=== PATIENT | male | born 1940 | race Caucasian/White ===

== ENCOUNTER 2018-03-11 13:11 | Inpatient (IN) ==
[2018-03-11] MEDS ORDERED: *HR* Dextrose 50 % in Water (Syg) 50 ML SYRINGE ONE (13:15)
--- NOTE | 2018-03-11 13:29 | Emergency Department Note ---
Disposition Clinical Impression: Hypoglycemia Congestive heart failure Qualifiers: Heart failure type: unspecified Heart failure chronicity: acute Qualified Code( s): I50.9 - Heart failure, unspecified Altered mental status Qualifiers: Altered mental status type: unspecified Qualified Code(s): R41.82 - Altered mental status, unspecified Disposition: Admitted As Inpatient Condition: Fair Forms: ED Satisfaction Letter, Work/School Release Time of Disposition: 14:34 Altered Mental Status HPI - General Chief Complaint: ED General Medical Stated Complaint: low BS Time Seen by Provider: 03/11/18 13:18 Source: patient, family, EMS Mode of arrival: EMS Limitations: no limitations Nursing Notes Reviewed: Yes Vital Signs Reviewed: Yes - History of Present Illness HPI Narrative: Patient presents to the ED with the chief complaint of altered mental status. Patient arrived via EMS and was seen and evaluated immediately upon arrival. Patient has a history of fragile diabetes. He normally lives at home with his , but she was recently committed to a mental institution. Patient's sister called him today and was unable to get a hold of him when over to his house and found him "gurgling" with phlegm coming out of his mouth. Sound very congested. She checked his blood sugar and it was in the 30s. She tried to give him some glucose orally, but he was not responding appropriately, so she called EMS. Blood sugar for EMS was in the 50s. States that he was running around, but they were unable to get IV access. Because they are a basic crew. He was given an amp of D50 and his mental status almost immediately improved. He was able to tell me is been having some chest pain and heaviness today. He said a thick cough and congestion. Unsure if these had any fevers. States he took his insulin this morning and forgot to eat. - Related Data Home Medications Medication Instructions Recorded Confirmed Aspirin [Adult Aspirin] 81 mg PO DAILY 03/11/18 Furosemide [Lasix] 40 mg PO DAILY 03/11/18 Insulin Glargine,Hum.rec.anlog 90 unit SQ DAILY 03/11/18 [Humzaubernie Solostar] Insulin LISPRO [Humalog Kwikpen 12 unit SQ TID 03/11/18 U-100] Nitroglycerin [Nitrostat] 0.4 mg SL Q5M PRN 03/11/18 Pravastatin Sodium [Pravachol] 40 mg PO QPM 03/11/18 Ramipril [Altace] 10 mg PO DAILY 03/11/18 Allergies Allergy/AdvReac Type Severity Reaction Status Date / Time Penicillins [PCN] Allergy Rash Verified 07/08/17 09:04 Hrrfxtr-Yeq-Xpv Reductase AdvReac See Verified 07/08/17 09:04 Inhibitor Comments [Statins] Review of Systems: As reviewed in the HPI. All other systems reviewed are negative or normal. Past Medical History - Past Medical History Attestation: Yes The following information was validated with the patient. Source: patient, old records reviewed Medical history: Reports: diabetes, hypertension Psychiatric history: Reports: no psych history - Social History Smoking Status: Never smoker Alcohol use: Reports: none Drug use: Reports: none Physical Exam CONSTITUTIONAL: [ill appearing, alert . After glucagon and in no acute distress ] EYES: [EOMI, clear conjunctiva, PERRLA] HENT: [Normocephalic, atraumatic, moist mucus membranes, normal oropharynx] NECK: [normal inspection, full ROM, trachea midline, no obvious swelling] PULMONARY: [Rales and coarse congestion bilaterally, normal chest rise and fall , no respiratory distress or stridor CARDIOVASCULAR: [regular rate, regular rhythm, normal heart sounds, no murmurs, distal extremities are warm and well perfused] GASTROINSTESTINAL: [soft, non-tender, non-rigid, non-distended, no guarding, no rebound, normal bowel sounds, fairly significant ventral hernia when attempting to sit up] GENITOURINARY/RECTAL: [deferred] NEUROLOGIC: [Alert, oriented x3, normal speech, moves all extremities, GCS 15. After glucagon, cranial nerves II through XII intact, and NIH of 0] EXTREMITIES: [Normal inspection, full ROM, no tenderness, 1+ pedal edema, normal capillary refill] MUSCULOSKELETAL: [no gross deformities, atraumatic] SKIN: [No cyanosis, no diaphoresis, normal color, warm, no rash] PSYCHIATRIC: [normal mood and affect] - General General appearance: alert Course Course Narrative: Patient presenting with altered mental status. Was hypoglycemic and his mental status has significantly improved after IV glucose. He is able to tell us that he has had cough and congestion recently and is also having some chest tightness and heaviness. Does have a history of coronary disease. His hypoglycemia has resolved, but we will workup this chest pain for potential infectious or cardiac etiologies that could have been leading to his hypoglycemia. He did say that he took his insulin this morning and thinks that he forgot to eat. - Reevaluation(s) Reevaluation #1: patient does appear to be in heart failure. Mentating much better. Will admit to hospitalist for further workup. Vital Signs Temperature 97.0 F L 03/11/18 13:13 Pulse Rate 92 03/11/18 13:13 Respiratory Rate 16 03/11/18 13:13 Blood Pressure 161/92 03/11/18 13:13 O2 Sat by Pulse Oximetry 100 03/11/18 13:13 Temperature 97.0 F L 03/11/18 13:13 Pulse Rate 92 03/11/18 13:13 Respiratory Rate 16 03/11/18 13:13 Blood Pressure 161/92 03/11/18 13:13 O2 Sat by Pulse Oximetry 100 03/11/18 13:37 Oxygen Delivery Oxygen Delivery Room Air Altered Mental Status - Medical Records Medical records reviewed: Yes I reviewed the patient's medical records. - Lab Data Lab results reviewed: Yes I reviewed the patient's lab results. Result diagrams: 03/11/18 13:43 03/11/18 13:43 Lab Results 03/11/18 03/11/18 03/11/18 Range/Units 13:43 13:43 13:43 WBC 6.0 (4.3-11.1) K/mcL RBC 4.44 (4.19-5.50) M/mcL Hgb 14.1 (12.9-16.9) g/dL Hct 42.4 (37.5-50.1) % MCV 95.5 (83.0-100.0) fL MCH 31.8 (28.0-33.3) pg MCHC 33.3 (31.6-35.5) g/dL RDW 14.1 (11.5-14.5) % Plt Count 94 L (140-400) K/mcL MPV 9.0 L (9.4-12.4) fL Immature Gran % 0.3 (0-4) % Seg Neutrophils % 87.3 % Lymphocytes % 8.5 % Monocytes % 3.5 % Eosinophils % 0.2 % Basophils % 0.2 % Neutrophils # 5.2 (1.6-8.9) K/mcL Lymphocytes # 0.5 L (0.6-4.6) K/mcL Monocytes # 0.2 (0.0-1.3) K/mcL Eosinophils # 0.0 (0.0-0.6) K/mcL Basophils # 0.0 (0.0-0.2) K/mcL Sodium (136-145) mEq/L Potassium (3.5-5.1) mEq/L Chloride (98-107) mEq/L Carbon Dioxide (23-29) mEq/L BUN (8-23) mg/dL Creatinine (0.70-1.30) mg/dL Est GFR ( Amer) (> 60) Est GFR (Non-Af Amer) (> 60) BUN/Creatinine Ratio (6-26) Glucose (70-105) mg/dL Calculated Osmolality (280-300) Lactic Acid 1.5 (0.5-2.2) mmol/L Calcium (8.6-10.3) mg/dL Troponin I (< 0.04) ng/mL B-Natriuretic Peptide 246 H (Less than 100) pg/mL 03/11/18 Range/Units 13:43 WBC (4.3-11.1) K/mcL RBC (4.19-5.50) M/mcL Hgb (12.9-16.9) g/dL Hct (37.5-50.1) % MCV (83.0-100.0) fL MCH (28.0-33.3) pg MCHC (31.6-35.5) g/dL RDW (11.5-14.5) % Plt Count (140-400) K/mcL MPV (9.4-12.4) fL Immature Gran % (0-4) % Seg Neutrophils % % Lymphocytes % % Monocytes % % Eosinophils % % Basophils % % Neutrophils # (1.6-8.9) K/mcL Lymphocytes # (0.6-4.6) K/mcL Monocytes # (0.0-1.3) K/mcL Eosinophils # (0.0-0.6) K/mcL Basophils # (0.0-0.2) K/mcL Sodium 140 (136-145) mEq/L Potassium 3.4 L (3.5-5.1) mEq/L Chloride 108 H (98-107) mEq/L Carbon Dioxide 23 (23-29) mEq/L BUN 15 (8-23) mg/dL Creatinine 1.33 H (0.70-1.30) mg/dL Est GFR ( Amer) > 60 (> 60) Est GFR (Non-Af Amer) 52 L (> 60) BUN/Creatinine Ratio 11 (6-26) Glucose 160 H (70-105) mg/dL Calculated Osmolality 294 (280-300) Lactic Acid (0.5-2.2) mmol/L Calcium 8.9 (8.6-10.3) mg/dL Troponin I 0.03 (< 0.04) ng/mL B-Natriuretic Peptide (Less than 100) pg/mL - Radiology Data Radiology results reviewed: Yes I reviewed the patient's radiology results. - EKG Data EKG attestation: Yes I reviewed and interpreted this EKG. EKG results narrative: sinus rhythm with occasional PVC, normal intervals, normal axis, no acute ischemic changes. TPA Checklist - LKW: 3-4.5 hrs Add. Warnings/Precautions Patient/family understanding: The patient/family members have been counseled and understood the risk, benefit , and alternatives of treatment.
[2018-03-11 13:56] LABS: Basophils % 0.2 %; Eosinophils % 0.2 %; Hematocrit 42.4 % (37.5-50.1); Hemoglobin 14.1 g/dL (12.9-16.9); Immature Granulocytes % 0.3 % (0-4); Lymphocytes # 0.5 K/mcL (0.6-4.6); Lymphocytes % 8.5 %; Mean Corpuscular HGB Conc 33.3 g/dL (31.6-35.5); Mean Corpuscular Hemoglobin 31.8 pg (28.0-33.3); Mean Corpuscular Volume 95.5 fL (83.0-100.0); Monocytes # 0.2 K/mcL (0.0-1.3); Monocytes % 3.5 %; Neutrophils # 5.2 K/mcL (1.6-8.9); Red Blood Count 4.44 M/mcL (4.19-5.50); Red Cell Distribution Width 14.1 % (11.5-14.5); Segmented Neutrophils % 87.3 %
[2018-03-11 13:57] LABS: Platelet Count 94 K/mcL (140-400)
[2018-03-11 14:20] LABS: Troponin I 0.03 ng/mL (< 0.04)
[2018-03-11 14:21] LABS: BUN/Creatinine Ratio 11 (6-26); Blood Urea Nitrogen 15 mg/dL (8-23); Calcium 8.9 mg/dL (8.6-10.3); Carbon Dioxide 23 mEq/L (23-29); Chloride 108 mEq/L (98-107); Glucose 160 mg/dL (70-105); Osmolality,Calculated 294 (280-300); Potassium 3.4 mEq/L (3.5-5.1); Sodium 140 mEq/L (136-145); eGFR For Non-African Americans 52 (> 60)
[2018-03-11] MEDS ORDERED: *HR* Dextrose 50 % in Water (Syg) 50 ML SYRINGE IVP PRN (16:05)
[2018-03-11] MEDS ORDERED: D5% in Water 1,000 ML IVC PRN (16:05)
[2018-03-11] MEDS ORDERED: Dextrose Gel 15 GM/37.5 ML TUBE PO PRN ×2 (16:05)
[2018-03-11] MEDS ORDERED: Nitroglycerin 0.4 MG TAB.SUBL SL PRN (16:06)
[2018-03-11] MEDS ORDERED: traMADol 50 MG TABLET PO PRN (16:07)
[2018-03-11] MEDS ORDERED: Naloxone 0.4 MG/ML INJ IVP PRN (16:07)
[2018-03-11] MEDS ORDERED: Acetaminophen 325 MG TABLET PO PRN (16:07)
--- NOTE | 2018-03-11 16:37 | Internal Med History&Physical ---
<Aryan Castillo Fadi - Last Filed: 03/11/18 17:23> Date of Encounter: 03/11/18 Time of Encounter: 15:30 Internal Medicine - H&P: HPI Chief complaint: AMS/Hypoglycemia Admitted From: Emergency Dept Plans for Post Hospital Care: Home History of present illness: Mr. Dupont is a 77 year old male w/PMH of HTN, HLD, diabetes controlled w/ insulin, and enlarged prostate presents from the ED w/CC of being found by his [id number] at home this morning and being unresponsive and altered d/t hypoglycemia. Pt. states that details are foggy, but he remembers getting up and taking his insulin shot and PO medications followed by a dose of cough medication w/codeine and going back to bed w/o eating. Next details he remembers is the bonding machine setter working on him. Denies previous hx of hypoglycemia. Reports cough for past several weeks, fever, chills, and pedal edema in bilateral LEs. Denies recent illness, nausea, vomiting, CP, SOB, changes in vision, headache, unusual bleeding, abdominal pain, diarrhea, constipation, dizziness, lightheadedness, numbness, tingling, pre-syncope, or syncope. Past Med Surg Social Fam HX - Past Medical History Source: patient, old records reviewed Medical history: diabetes, hyperlipidemia, hypertension, other (BPH) Psychiatric history: no psych history - Past Surgical History Surgical History: cancer surgery (Chest and bilateral LEs) - Social History Smoking Status: Former smoker Packs per day: 1 PPD - Reports quitting 40 years ago Alcohol use: none Drug use: none Current living situation: Home Activity Level: Independent ambulation Recent Out of Country Travel Within the Last 8 Weeks: No Exposure or Possible Exposure to Illness During Travel: No - Family History Father Race: Family Member Ethnicity: Non- Living Status: Age at : 90 Cause of : Colon cancer Hx Family Cancer: Yes (Colon) Mother Race: Family Member Ethnicity: Non- Living Status: Age at : 86 Cause of : Colon cancer Hx Family Cancer: Yes (Colon) Brother Race: Family Member Ethnicity: Non- Living Status: Still Living Hx Family Medical Disorders: No Sister Race: Family Member Ethnicity: Non- Living Status: Still Living Hx Family Psychosocial Disorders: Yes (Drug addiction) Internal Medicine - H&P: Meds Aspirin [Adult Aspirin] 81 mg PO DAILY 03/11/18 [History] Furosemide [Lasix] 40 mg PO DAILY 03/11/18 [History] Insulin Glargine,Hum.rec.anlog [Toujeo Solostar] 90 unit SQ DAILY 03/11/18 [ History] Insulin LISPRO [Humalog Kwikpen U-100] 15 unit SQ TID 03/11/18 [History] Nitroglycerin [Nitrostat] 0.4 mg SL Q5M PRN 03/11/18 [History] Pravastatin Sodium [Pravachol] 40 mg PO QPM 03/11/18 [History] Ramipril [Altace] 10 mg PO DAILY 03/11/18 [History] 3 Allergy/AdvReac Type Severity Reaction Status Date / Time Penicillins [PCN] Allergy Rash Verified 07/08/17 09:04 Zqyjvek-Pbc-Cdu Reductase AdvReac See Verified 07/08/17 09:04 Inhibitor Comments [Statins] All Systems PM: A 10-system review of systems was performed and is negative for pertinent findings except as documented above in the HPI. - Constitutional Constitutional: as per HPI, chills, fever(s), no night sweats - EENT Eyes: no change in vision, no discharge, no pain, no photophobia Ears: no ear discharge, no ear pain, no tinnitus Nose, mouth and throat: no dysphagia, no nasal discharge, no neck pain, no sore throat - Breasts Breasts: as per HPI - Cardiovascular Cardiovascular ROS IM: as per HPI, edema (Bilateral LEs), no chest pain, no diaphoresis, no dyspnea, no lightheadedness, no palpitations, no syncope - Respiratory Respiratory: as per HPI, cough, chest congestion, excessive phlegm production, no dyspnea, no wheezing - Gastrointestinal Gastrointestinal: no abdominal pain, no diarrhea, no hematemesis, no hematochezia, no melena, no nausea, no vomiting - Genitourinary Genitourinary ROS male: as per HPI, urinary frequency (D/t lasix use for BPH) - Musculoskeletal Musculoskeletal ROS IM: as per HPI, back pain, no numbness, no tingling - Integumentary Integumentary IM: as per HPI, no rash, no unusual bruising - Neurological Neurological ROS: as per HPI, no confusion, no convulsions, no focal weakness, no numbness, no tingling, no tremor(s) - Psychiatric Psychiatric: as per HPI - Endocrine Endocrine IM: as per HPI - Hematologic/Lymphatic Hematologic/Lymphatic: no easy bruising - Allergic/Immunologic Allergic/Immunologic: as per HPI - Constitutional Vitals: Temp Pulse Resp BP Pulse Ox 97.0 F L 80 16 181/91 96 03/11/18 13:13 03/11/18 15:08 03/11/18 15:08 03/11/18 15:08 03/11/18 15:08 General appearance: Present: cooperative, A&O X 3, pleasant, no acute distress, obese, answers questions appropriately Exam: Patient examined at bedside in ED. AMS resolved. Pt. A&O x3, conversational, and remembers dates and details w/o problem. States he took his insulin w/o eating. Denies previous hypoglycemia. Reports chronic cough for the past several weeks, fever, chills. Denies any other sx at this time. VS: 97.8F temp, HR 63, RR 15, BP 173/74, SpO2 98% on RA. - Head Head exam: Present: atraumatic, normocephalic - Eye Eye exam: Present: PERRL, conjuntiva pink, sclera anicteric Pupils: Present: PERRL - ENT ENT exam: Present: normal exam - Neck Neck exam general surgery: Present: normal inspection, supple, trachea midline. Absent: lymphadenopathy - Respiratory Respiratory exam: Present: wheezes. Absent: accessory muscle use, rales, rhonchi - Cardiovascular Cardiovascular exam: Present: irregular rhythm - GI/Abdominal GI/Abdominal exam: Present: normal bowel sounds, soft, no peritoneal signs. Absent: distended, tenderness - Rectal Rectal exam: Present: deferred - Additional comments: exam deferred. - Extremities Exam Extremities exam: Present: pedal edema, warm, radial pulses palpable and symmetrical. Absent: calf tenderness, cyanotic - Back Exam Back exam: Present: normal inspection - Neurological Exam Neurological exam: Present: alert, CN II-XII intact, oriented X3, no focal deficits. Absent: pronater drift, facial droop, speech deficit - Psychiatric Psychiatric exam: Present: normal affect, normal mood - Skin Skin exam: Present: dry, intact Internal Med - H&P Results - Labs CBC & Chem 7: 03/11/18 13:43 03/11/18 13:43 - EKG Data Prior EKG available for review: yes Interpretation IM: suggestive of ischemia EKG comments: 03/11/18 16:44 EKG dated 08/30/13 shows atrial flutter and lateral St-T changes are non- specific. EKG dated 03/11/18 shows AV block, complete (third degree); ventricular premature complex, non-specific intraventricular conduction delay, repolarization abnormality that suggests ischemia (anterolateral), minimal ST elevation in inferior leads, and baseline wander in leads. - Diagnostic Studies Chest x-ray Additional comments: Impressions Chest X-Ray 03/11/18 13:24 IMPRESSION: Suggestion of early CHF with interstitial pulmonary edema and small effusions. D/ / 03/11/2018 13:48:31 Angelica Leonard MD / denise Interpreting Provider: Angelica Leonard MD - Assessment and plan (1) Acute exacerbation of CHF (congestive heart failure) Current Visit: Yes Status: Acute Assessment and plan: Acute exacerbation of CHF. Pt. reports bilateral pedal edema. Takes 40 mg PO lasix daily. CXR today suggestive of early CHF w/interstitial pulmonary edema and small effusions. BNP 246 on admission. Echocardiogram in October 2017 showed grossly normal LV systolic function, LVEF of 55-60%, normal right ventricular structure and function, unable to evaluate segmental wall motion due to technical quality. Limited Echocardiogram ordered. 1.5L daily fluid restriction. Monitor I&O and daily weight. Continuous cardiac telemetry. Hold PO lasix and administer 40 mg IVP lasix daily. Initial troponin <0.03. Will trend. Pt. denies CP. Consider Cardiology consult based on Echocardiogram results and new EKG d/t previously abnormal EKG. Pt. discussed w/Dr. Thomas who agrees w/plan of care. Pt. is high risk for further morbidity and complications based on current CHF exacerbation, thrombocytopenia of unknown etiology, poorly- controlled diabetes resulting in hypoglycemia, hx, and risk factors. Observation. Qualifiers: Heart failure type: diastolic Qualified Code(s): I50.33 - Acute on chronic diastolic (congestive) heart failure (2) Altered mental status Current Visit: Yes Status: Acute Assessment and plan: Acute AMS d/t hypoglycemia this a.m. Sx resolved by assessment in ED. Pt. A&O x3 and conversational. Remembers dates and familial hx w/o problem. Denies previous occurrence. Falls/safety precautions. Up with assist. Pt. to be monitored closely for signs of neurologic changes. Qualifiers: Altered mental status type: disorientation Qualified Code(s): R41.0 - Disorientation, unspecified (3) Hypoglycemia Current Visit: Yes Status: Acute Assessment and plan: Acute hypoglycemia this a.m. after pt. reports taking his insulin and not eating. Denies hx of hypoglycemia. Will continue pts. Lispro and low-dose correction sliding scale insulin w/hypoglycemic protocol. Pt. to be monitored closely. (4) Hypokalemia Current Visit: Yes Status: Acute Assessment and plan: Acute. 3.4 on admission. 40 mEq potassium PO ordered. Re-check potassium at 23: 00. Continuous cardiac telemetry. (5) Thrombocytopenia Current Visit: Yes Status: Acute Assessment and plan: Hx of chronic thrombocytopenia. In October, pts. platelets 126. 94 now on admission. Pt. denies hx of RA or alcohol abuse. Folate, B12, Iron profile, hepatic panel ordered. Hematology Oncology consult ordered and discussed w/Dr. Valdes and I appreciate the recommendations and consult as always. Monitor pts. f/u labs. (6) HTN (hypertension) Current Visit: Yes Status: Chronic Assessment and plan: Hx of chronic HTN. Monitor pt. and VS. Continue pts. Ramipril. Add hydralazine 10 mg IVP Q6HR PRN w/parameters. Qualifiers: Hypertension type: essential hypertension Qualified Code(s): I10 - Essential (primary) hypertension (7) HLD (hyperlipidemia) Current Visit: Yes Status: Chronic Assessment and plan: Hx of chronic HLD. Lipid panel in a.m. labs. Continue pts. Pravastatin. Qualifiers: Hyperlipidemia type: pure hypercholesterolemia Qualified Code(s): E78.00 - Pure hypercholesterolemia, unspecified; E78.0 - Pure hypercholesterolemia (8) Diabetes Current Visit: Yes Status: Chronic Assessment and plan: Hx of chronic diabetes controlled by insulin. Continue pts. Lispro insulin and add low-dose correction sliding scale insulin w/hypoglycemic protocol. BG checks ACHS. A1c in a.m. labs. Qualifiers: Diabetes mellitus type: type 2 Diabetes mellitus half-way insulin use: unspecified half-way insulin use status Diabetes mellitus complication status : with unspecified complications Qualified Code(s): E11.8 - Type 2 diabetes mellitus with unspecified complications (9) BPH (benign prostatic hyperplasia) Current Visit: Yes Status: Chronic Assessment and plan: Hx of chronic BPH and urinary frequency d/t lasix use. IVP lasix 40 mg daily d/ t current CHF exacerbation. Monitor I&O and daily weight. Qualifiers: Lower urinary tract symptom presence: symptoms present Lower urinary tract symptom detail: urinary frequency Qualified Code(s): N40.1 - Benign prostatic hyperplasia with lower urinary tract symptoms; R35.0 - Frequency of micturition (10) CKD (chronic kidney disease) stage 3, GFR 30-59 ml/min Current Visit: Yes Status: Chronic Assessment and plan: Hx of CKD. Currently stage 3 w/GFR of 52 and creatinine of 1.33. Will use IV fluids judiciously if warranted d/t current CKD and CHF exacerbation. Monitor I& O. Avoid nephrotoxins. (11) DVT prophylaxis Current Visit: Yes Status: Acute Assessment and plan: SCDs on bilateral LEs for DVT prophylaxis d/t current thrombocytopenia. (12) Cough Current Visit: Yes Status: Acute Assessment and plan: Acute on chronic cough for the past several weeks. Pt. reports sputum production , fever, and chills intermittently. Sputum culture. Respiratory infection panel. Legionella and strep pneumoniae antigens ordered. Mucinex. Xopenex IH d/ t hx of atrial flutter. - Time Spent With Patient Total time spent is greater than 50% in coordination of care (as documented) at patient's floor/unit and/or counseling patient: Greater than 35 minutes <Gareth Thomas T - Last Filed: 03/11/18 17:44> Date of Encounter: 03/11/18 Internal Medicine - H&P: HPI History of present illness: Mr. Dupont is a 77 year old male All Systems PM: A 10-system review of systems was performed and is negative for pertinent findings except as documented above in the HPI. - Constitutional Vitals: Temp Pulse Resp BP Pulse Ox 97.8 F 63 15 173/74 98 03/11/18 16:32 03/11/18 16:32 03/11/18 16:32 03/11/18 16:32 03/11/18 16:32 Internal Med - H&P Results - Labs CBC & Chem 7: 03/11/18 13:43 03/11/18 13:43 - Assessment and plan (1) Hypoglycemia Current Visit: Yes Status: Acute (2) Altered mental status Current Visit: Yes Status: Acute Qualifiers: Altered mental status type: disorientation Qualified Code(s): R41.0 - Disorientation, unspecified (3) Acute exacerbation of CHF (congestive heart failure) Current Visit: Yes Status: Acute Qualifiers: Heart failure type: diastolic Qualified Code(s): I50.33 - Acute on chronic diastolic (congestive) heart failure (4) Thrombocytopenia Current Visit: Yes Status: Acute (5) HTN (hypertension) Current Visit: Yes Status: Chronic Qualifiers: Hypertension type: essential hypertension Qualified Code(s): I10 - Essential (primary) hypertension (6) HLD (hyperlipidemia) Current Visit: Yes Status: Chronic Qualifiers: Hyperlipidemia type: pure hypercholesterolemia Qualified Code(s): E78.00 - Pure hypercholesterolemia, unspecified; E78.0 - Pure hypercholesterolemia (7) Diabetes Current Visit: Yes Status: Chronic Qualifiers: Diabetes mellitus type: type 2 Diabetes mellitus half-way insulin use: unspecified meterman insulin use status Diabetes mellitus complication status : with unspecified complications Qualified Code(s): E11.8 - Type 2 diabetes mellitus with unspecified complications (8) BPH (benign prostatic hyperplasia) Current Visit: Yes Status: Chronic Qualifiers: Lower urinary tract symptom presence: symptoms present Lower urinary tract symptom detail: urinary frequency Qualified Code(s): N40.1 - Benign prostatic hyperplasia with lower urinary tract symptoms; R35.0 - Frequency of micturition (9) DVT prophylaxis Current Visit: Yes Status: Acute (10) CKD (chronic kidney disease) stage 3, GFR 30-59 ml/min Current Visit: Yes Status: Chronic (11) Hypokalemia Current Visit: Yes Status: Acute (12) Cough Current Visit: Yes Status: Acute - Time Spent With Patient Total time spent is greater than 50% in coordination of care (as documented) at patient's floor/unit and/or counseling patient: - Attending Attestation Patient is seen, interviewed and examined independently of nurse practitioner. Patient presented with altered mental status most likely attributed with hypoglycemia after taking insulin and falling asleep and forgetting to eat. Mental status has been resolved now that glucoses improved. Patient found to have worsening thrombocytopenia on laboratory studies. Patient also found to have evidence of slight pulmonary edema on x-ray and complaints of worsening shortness of breath We will place patient in observation and will trend troponins; as the patient had some slight ST depressions in V5 and V6 that do not appear to be present in prior EKGs; that we will repeat EKG; patient without chest pain Troponins increase or EKGs worsen will consider cardiology evaluation. General: no acute distress Cardio: regular rate Resp: faint expiratory wheezes, non labored
[2018-03-11] MEDS: Furosemide 40 MG/4 ML VIAL IVP SCH (17:29)
[2018-03-11] MEDS: Insulin LISPRO 300 UNITS/3 ML VIAL SQ SCH ×2 (17:30→21:54)
[2018-03-11 17:41] LABS: Albumin 3.5 g/dL (3.5-5.7); Albumin/Globulin Ratio 1.3 (1.1-2.2); Bilirubin,Direct 0.3 mg/dL (0.0-0.2); Bilirubin,Indirect 0.5 mg/dL (0.0-1.2); Bilirubin,Total 0.8 mg/dL (0.3-1.0); Globulin 2.7 g/dL (2.4-3.5); Total Protein 6.2 g/dL (6.4-8.9)
[2018-03-11 18:05] LABS: Folate 12.9 ng/mL (3.0-16.0)
[2018-03-11 18:45] LABS: Adenovirus Not Detected (Not Detect); Bordetella Pertussis Not Detected (Not Detect); Chlamydophila pneumoniae Not Detected (Not Detect); Coronavirus 229E Not Detected (Not Detect); Coronavirus HKU1 Not Detected (Not Detect); Coronavirus NL63 Not Detected (Not Detect); Coronavirus OC43 Not Detected (Not Detect); Human Metapneumovirus Not Detected (Not Detect); Human Rhinovirus/Enterovirus DETECTED (Not Detect); Influenza A Subtype 2009 H1 Not Detected (Not Detect); Influenza A Untypeable Not Detected (Not Detect); Influenza B Not Detected (Not Detect); Mycoplasma pneumoniae Not Detected (Not Detect); Parainfluenza Virus 1 Not Detected (Not Detect); Parainfluenza Virus 2 Not Detected (Not Detect); Parainfluenza Virus 3 Not Detected (Not Detect); Parainfluenza Virus 4 Not Detected (Not Detect); Respiratory Syncytial Virus Not Detected (Not Detect)
[2018-03-11] MEDS ORDERED: Perflutren Lipid Microsphere 1.3 ML in 0.9 % Sodium Chloride 8.7 ML IVP ONE (20:45)
[2018-03-11] MEDS ORDERED: INSULIN LISPRO 15 UNIT SQ SCH (21:00)
[2018-03-11 21:31] LABS: Bilirubin,Urine Negative (Negative); Blood,Urine Negative (Negative); Clarity,Urine Clear (Clear); Color,Urine Yellow (Yellow); Glucose,Urine (UA) Normal (Normal); Ketones,Urine Negative (Negative); Leukocyte Esterase,Urine Negative (Negative); Nitrite,Urine Negative (Negative); Protein,Urine Negative (Neg-Trace); Specific Gravity,Urine 1.015 (1.010-1.025); Urobilinogen,Urine Normal (Normal)
[2018-03-11] MEDS: Levalbuterol Neb 1.25 MG/3 ML IH SCH (22:09)
[2018-03-12 01:57] LABS: Basophils % 0.3 %; Eosinophils # 0.1 K/mcL (0.0-0.6); Eosinophils % 1.5 %; Hematocrit 39.8 % (37.5-50.1); Hemoglobin 13.4 g/dL (12.9-16.9); Immature Granulocytes % 0.4 % (0-4); Lymphocytes # 1.4 K/mcL (0.6-4.6); Lymphocytes % 17.8 %; Mean Corpuscular HGB Conc 33.7 g/dL (31.6-35.5); Mean Corpuscular Hemoglobin 31.4 pg (28.0-33.3); Mean Corpuscular Volume 93.2 fL (83.0-100.0); Mean Platelet Volume 8.9 fL (9.4-12.4); Monocytes # 0.6 K/mcL (0.0-1.3); Monocytes % 7.4 %; Neutrophils # 5.7 K/mcL (1.6-8.9); Platelet Count 120 K/mcL (140-400); Red Blood Count 4.27 M/mcL (4.19-5.50); Red Cell Distribution Width 14.1 % (11.5-14.5); Segmented Neutrophils % 72.6 %
[2018-03-12 02:18] LABS: Albumin 3.3 g/dL (3.5-5.7); Albumin/Globulin Ratio 1.1 (1.1-2.2); Bilirubin,Total 0.8 mg/dL (0.3-1.0); Calcium 8.7 mg/dL (8.6-10.3); Chol/HDL Ratio 3.4 (0-4.9); Magnesium 1.6 mg/dL (1.6-2.6); Potassium 3.9 mEq/L (3.5-5.1); Total Protein 6.3 g/dL (6.4-8.9)
[2018-03-12] MEDS: Levalbuterol Neb 1.25 MG/3 ML IH SCH ×4 (04:49→22:13)
[2018-03-12 07:10] LABS: Estimated Average Glucose 140 mg/dl; Hemoglobin A1C 6.5 %
[2018-03-12] MEDS ORDERED: Insulin LISPRO 300 UNITS/3 ML VIAL SQ SCH (08:00)
[2018-03-12] MEDS: Insulin LISPRO 300 UNITS/3 ML VIAL SQ SCH ×4 (08:12→20:41)
[2018-03-12] MEDS: Aspirin Enteric Coated 81 MG Tablet PO SCH (08:14)
[2018-03-12] MEDS: Furosemide 40 MG/4 ML VIAL IVP SCH (08:14)
[2018-03-12] MEDS ORDERED: Lisinopril 20 MG TABLET PO SCH (09:00)
[2018-03-12] MEDS ORDERED: D10% in 0.2 % NACL 250 ML IVC SCH (13:15)
[2018-03-12] MEDS ORDERED: Furosemide 20 MG/2 ML VIAL IVP SCH (14:06)
--- NOTE | 2018-03-12 14:07 | Internal Med Progress Note ---
Hospitalist Progress Note - Encounter Date of Encounter: 03/12/18 Time of Encounter: 14:03 - Subjective Interval History: Patient seen and evaluated at bedside, he report feel well but reports having a productive cough of clear/yellowish sputum for about 1 week now. denies fever, chills, nausea or vomiting. No hypoglycemic like symptoms. - Exam Vitals: Temp Pulse Resp BP Pulse Ox 98.5 F 72 15 179/75 95 03/12/18 11:59 03/12/18 11:59 03/12/18 11:59 03/12/18 11:59 03/12/18 11:59 Exam: General: Alert and oriented x4. no acute distress, Skin:Normal color, no rash, no lesions. Cardiovascular: RRR, Normal S1 & S2, no rubs, murmurs or gallops. No JVD. Pulse regular. Lungs:Minimal crackles at the bases b/l > in the r lower lobe. No wheezing or rales. Abdomen: Obese, Soft, non-tender, no rigidity. Extremities: Trace pitting edema in the lower ext b/l. Neurological: Normal cognition and motor skills. CN II-XII intact Rest of the physical exam is non contributory - Assessment and Plan (1) Hypoglycemia Current Visit: Yes Status: Acute Assessment and Plan: Blood sugar still running the low side. No signs of active infection. Plan: Discontinue Lispro 15 units TIDWM Continue accu-checks Q4HRs started on D10@50mls/hr continue lispro sliding scale Encourage PO intake. Blood culture. (2) Diabetes Current Visit: Yes Status: Chronic Assessment and Plan: Patient presented with Hypoglycemia. Plan of care as above. (3) Acute exacerbation of CHF (congestive heart failure) Current Visit: Yes Status: Acute Assessment and Plan: Patient seems euvolemic on exam. Plan Strict intake and output Daily weight D/C lisinopril due to worseing kidney function decrease furosemide to 20gm/IV daily Continue carvedilol 12.5mg/PO BID (4) Thrombocytopenia Current Visit: Yes Status: Acute Assessment and Plan: Patient with a Hx of thrombocytopenia. Out patient f/u. (5) HTN (hypertension) Current Visit: Yes Status: Chronic Assessment and Plan: BP well controlled. Continue carvedilol 12.5mg/PO daily. Lisinopril DC due to elevation in Creatinine. Will monitor for medication adjustment if needed. (6) HLD (hyperlipidemia) Current Visit: Yes Status: Chronic Assessment and Plan: On atorvastatin. (7) CKD (chronic kidney disease) stage 3, GFR 30-59 ml/min Current Visit: Yes Status: Chronic Assessment and Plan: Plan: avoid nephrotoxic medications. Discontinued lisinopril. If Creat continues to worsens consider Nephro consult. (8) Upper respiratory infection Current Visit: Yes Status: Acute Assessment and Plan: Patient continues to have productive cough for the past week. Plan Started on empirically on levofloxacin Sputum culture: Growing gram negative rods, pending sensitivity and specificity (9) Altered mental status Current Visit: Yes Status: Resolved Assessment and Plan: Possible due to Hypoglycemia on presentation. (10) Elevated troponin Current Visit: Yes Status: Acute Assessment and Plan: Elevated trops possible due to NICA/CKD vs CHF exacerbation vs cannot r/o ischemic cause as patient with Hx of CAD s/p CABG in 2000. Plan Telemetry monitoring cardiology consulted will follow recommendations 12 leads EKG. (11) DVT prophylaxis Current Visit: Yes Status: Acute Assessment and Plan: Started on heparin 5000 units subcutaneous twice a day. - Summary of Assessment and Plan Summary of Assessment and Plan: Patient to remain in the hospital, to monitor blood sugar for at least 24 more hours. Sputum culture growing gram negative rods, pending sensitivity and specificity. - Time Spent with Patient Total time spent is greater than 50% in coordination of care (as documented) at patient's floor/unit and/or counseling patient: 25 - 35 minutes Plan of Care Discussed with: patient Internal Medicine: Result - Labs CBC & Chem 7: 03/12/18 01:38 03/12/18 01:38 Labs: Short CBC 03/12/18 Range/Units 01:38 WBC 7.8 (4.3-11.1) K/mcL Hgb 13.4 (12.9-16.9) g/dL Hct 39.8 (37.5-50.1) % Plt Count 120 L (140-400) K/mcL Neutrophils # 5.7 (1.6-8.9) K/mcL BMP 03/11/18 03/12/18 23:00 01:38 Sodium 141 Potassium 4.2 3.9 Chloride 109 H Carbon Dioxide 26 BUN 16 Creatinine 1.49 H Glucose 44 L Calcium 8.7 Cardiac Enzymes 03/11/18 03/12/18 03/12/18 Range/Units 20:04 01:38 05:15 Troponin I 0.05 H* 0.06 H* 0.05 H* (< 0.04) ng/mL Liver Function 03/11/18 03/12/18 Range/Units 17:05 01:38 Total Bilirubin 0.8 0.8 (0.3-1.0) mg/dL Direct Bilirubin 0.3 H (0.0-0.2) mg/dL AST 25 24 (13-39) Units/L ALT 15 16 (7-52) Units/L Alkaline Phosphatase 86 78 (34-104) Units/L Albumin 3.5 3.3 L (3.5-5.7) g/dL Urine 03/11/18 Range/Units 21:20 Urine Color Yellow (Yellow) Urine Clarity Clear (Clear) Urine pH 6.0 (5.0-8.0) pH Units Ur Specific [place] 1.015 (1.010-1.025) Urine Protein Negative (Neg-Trace) mg/dL Urine Glucose (UA) Normal (Normal) mg/dL - Impressions Impressions Echocardiogram Limited Views 03/11/18 16:02 Impressions: Technically sub-optimal due to poor echocardiographic windows. LVEF 55%. Normal LV chamber size, wall thickness and function. Atypical septal motion consistent with post-operative status. Left Ventricular Wall Motion: Rest Echo Findings All wall segments showed normal motion. Findings: Study Quality * Technically sub-optimal due to poor echocardiographic windows. ECG Findings * Sinus bradycardia. Left Ventricle * LVEF 55%. * Normal LV chamber size, wall thickness and function. * Atypical septal motion consistent with post-operative status. Right Ventricle * Grossly normal right ventricular function. Pericardium * The pericardium appears normal. Consult Discharge Plan - Plan Referrals: Aubrey Vitale MD [Primary Care Provider] - (Your appointment has been requested. Our office will call you with an appointment. 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 insulin use status Diabetes mellitus complication status : with unspecified complications Qualified Code(s): E11.8 - Type 2 diabetes mellitus with unspecified complications (3) Acute exacerbation of CHF (congestive heart failure) Qualifiers: Heart failure type: diastolic Qualified Code(s): I50.33 - Acute on chronic diastolic (congestive) heart failure (5) HTN (hypertension) Qualifiers: Hypertension type: essential hypertension Qualified Code(s): I10 - Essential (primary) hypertension (6) HLD (hyperlipidemia) Qualifiers: Hyperlipidemia type: pure hypercholesterolemia Qualified Code(s): E78.00 - Pure hypercholesterolemia, unspecified; E78.0 - Pure hypercholesterolemia (8) Upper respiratory infection Qualifiers: URI type: unspecified URI Qualified Code(s): J06.9 - Acute upper respiratory infection, unspecified (9) Altered mental status Qualifiers: Altered mental status type: disorientation Qualified Code(s): R41.0 - Disorientation, unspecified
--- NOTE | 2018-03-12 14:14 | Cardiology Consult Note ---
<Mila Swift - Last Filed: 03/12/18 14:29> Date of Encounter: 03/12/18 Time of Encounter: 14:00 Assessment and Plan (1) Elevated troponin Current Visit: Yes Status: Acute Mild, adynamic troponin elevation in the setting of severe hypoglycemia with blood glucose in the 30's. Also with mild NICA and severely elevated BP upon arrival. This likely represents demand ischemia. No chest pain, no ischemic ECG changes present. TTE shows preserved LVEF with normal wall motion. Recent nuclear stress test (2017) negative for ischemia or infarct. Continue current medical therapy including asa, statin, and BB. No further inpatient testing necessary. Will coordinate outpatient follow-up. (2) Congestive heart failure Current Visit: Yes Status: Chronic Patient presents shortness of breath upon arrival, now improved. CXR: early CHF with interstitial edema with small effusions BNP: 246 TTE (limited): LVEF 55%, normal wall motion. Has been on 40 mg IV lasix, suspect I&O's are not accurate. No overt volume overload upon exam. Dyspnea/cough also likely secondary to Rhinovirus. Reports cold like symptoms for a week. Continue current medical therapy, transition to po lasix upon discharge. Strict I&O's, daily weights, fluid restricted diet. Qualifiers: Heart failure type: diastolic Heart failure chronicity: acute on chronic Qualified Code(s): I50.33 - Acute on chronic diastolic (congestive) heart failure (3) Atrial fibrillation Current Visit: Yes Status: Acute Hx of chronic atrial fibrillation. Telemetry review, rate controlled on current medical therapy--BB. No palpitations, dizziness reported. Continue asa only for CVA. Hx of acute GI bleed requiring PRBC infusion last year on Xarelto. Patient is aware of increased risk for CVA. Qualifiers: Atrial fibrillation type: persistent Qualified Code(s): I48.1 - Persistent atrial fibrillation Discussion w patient/family: The assessment and plan as outlined above was discussed with the patient and/or family members who expressed understanding and agreement. All questions were answered. Thank you for involving us in the care of your patient. Please call with any questions. The patient will be discussed and reviewed with Dr. Dan; changes to be made accordingly. History of Present Illness Consult date: 03/12/18 Requesting physician: Ramon Kern Consult reason: Elevated troponin Chief complaint: Hypoglycemia History of present illness: Mr. Dupont is a 77 year old male with PMHx significant for chronic atrial fibrillation, CAD s/p CABG, HTN, CKD, HLD, DMII, and GI bleed last year who presented to the ED after syncopal episode to hypoglycemia. He reports he woke up yesterday morning and took his usually insulin shot dose and medications, he has had cold like symptoms for a week and took a dose of OTC cough syrup. After taking the cough syrup he feel asleep without eating breakfast which led to his episode of hypoglycemia. EMS was called due to "grogginess" and blood glucose was in the 30's. Upon arrival to ED, CXR demonstrated early CHF with interstitial pulmonary edema. Troponin 0.03, 0.05, 0.06, 0.05. No ECG changes. Past Med Surg Social Fam HX - Past Medical History Attestation: Yes The following information was validated with the patient. Source: patient Medical history: atrial fibrillation, coronary artery disease, diabetes, hyperlipidemia, hypertension, renal disease Psychiatric history: no psych history - Past Surgical History Surgical History: cancer surgery - Social History Smoking Status: Former smoker Packs per day: 1 PPD - Reports quitting 40 years ago Alcohol use: none Drug use: none - Family History Father Race: Family Member Ethnicity: Non- Living Status: Age at : 90 Cause of : Colon cancer Hx Family Cancer: Yes (Colon) Mother Race: Family Member Ethnicity: Non- Living Status: Age at : 86 Cause of : Colon cancer Hx Family Cancer: Yes (Colon) Brother Race: Family Member Ethnicity: Non- Living Status: Still Living Hx Family Medical Disorders: No Sister Race: Family Member Ethnicity: Non- Living Status: Still Living Hx Family Psychosocial Disorders: Yes (Drug addiction) Medications and Allergies Aspirin [Adult Aspirin] 81 mg PO DAILY 03/11/18 [History] Furosemide [Lasix] 40 mg PO DAILY 03/11/18 [History] Insulin Glargine,Hum.rec.anlog [Toujeo Solostar] 90 unit SQ DAILY 03/11/18 [ History] Insulin LISPRO [Humalog Kwikpen U-100] 15 unit SQ TID 03/11/18 [History] Nitroglycerin [Nitrostat] 0.4 mg SL Q5M PRN 03/11/18 [History] Pravastatin Sodium [Pravachol] 40 mg PO QPM 03/11/18 [History] Ramipril [Altace] 10 mg PO DAILY 03/11/18 [History] 3 Allergy/AdvReac Type Severity Reaction Status Date / Time Penicillins [PCN] Allergy Rash Verified 07/08/17 09:04 Grrwvpy-Omq-Yne Reductase AdvReac See Verified 07/08/17 09:04 Inhibitor Comments [Statins] All Systems Review: The remainder of the systems were reviewed and are negative - Cardiovascular Cardiovascular: as per HPI Physical Examination Vital Signs, Last 4 Hours Temp Pulse Resp BP Pulse Ox 03/12/18 11:59 98.5 F 72 15 179/75 95 General: Conversant HEENT: Atraumatic, Normocephaly Cardiac: Other (irregularly irregular) Lungs: Other (slightly diminished bibasilar bases) Neuro: Alert and responsive Abdomen: Soft Skin: No rashes noted on visualized skin Musculoskeletal: No Chest Wall Tenderness Extremities: Other (mild BLE pre-tibial edema) Results 03/12/18 01:38 03/12/18 01:38 Lab Results 03/11/18 03/11/18 03/11/18 17:05 20:04 23:00 WBC Hgb Hct Plt Count Sodium Potassium 4.2 Chloride Carbon Dioxide BUN Creatinine Glucose Calcium Magnesium Total Bilirubin 0.8 AST 25 ALT 15 Alkaline Phosphatase 86 Troponin I 0.05 H* 03/12/18 03/12/18 03/12/18 01:38 01:38 01:38 WBC 7.8 Hgb 13.4 Hct 39.8 Plt Count 120 L Sodium 141 Potassium 3.9 Chloride 109 H Carbon Dioxide 26 BUN 16 Creatinine 1.49 H Glucose 44 L Calcium 8.7 Magnesium 1.6 Total Bilirubin 0.8 AST 24 ALT 16 Alkaline Phosphatase 78 Troponin I 0.06 H* 03/12/18 05:15 WBC Hgb Hct Plt Count Sodium Potassium Chloride Carbon Dioxide BUN Creatinine Glucose Calcium Magnesium Total Bilirubin AST ALT Alkaline Phosphatase Troponin I 0.05 H* Active Medications Acetaminophen (Tylenol) 650 mg PO Q6HR PRN PRN Reason: Mild Pain/Fever Stop: 09/10/18 16:08 Aspirin (Aspirin Ec) 81 mg PO DAILY TAMMY Stop: 09/11/18 09:01 Last Admin: 03/12/18 08:14 Dose: 81 mg Atorvastatin Calcium (Lipitor) 10 mg PO QPM TAMMY Stop: 09/10/18 18:01 Last Admin: 03/11/18 17:29 Dose: 10 mg Carvedilol (Coreg) 12.5 mg PO BIDWM TAMMY PRN Reason: Protocol Stop: 09/11/18 17:01 Dextrose/Water (Dextrose 50% (Syg)) 25 ml IVP AD PRN PRN Reason: Hypoglycemia Stop: 09/10/18 16:06 Furosemide (Lasix) 20 mg IVP DAILY [facility] Stop: 09/11/18 14:07 Glucagon (Glucagen) 1 mg IM ONCE PRN PRN Reason: Hypoglycemia Stop: 09/10/18 16:06 Glucose (Gluctose) 15 gm PO ONCE PRN PRN Reason: Hypoglycemia Stop: 09/10/18 16:06 Glucose (Gluctose) 30 gm PO ONCE PRN PRN Reason: Hypoglycemia Stop: 09/10/18 16:06 Guaifenesin (Mucinex) 600 mg PO BID [facility] Stop: 09/10/18 21:01 Last Admin: 03/12/18 08:14 Dose: 600 mg Hydralazine HCl (Hydralazine) 10 mg IVP Q6HR PRN PRN Reason: Hypertension Stop: 09/10/18 17:01 Dextrose (Dextrose 5%) 1,000 mls @ 100 mls/hr IVC .Q10H PRN PRN Reason: HYPOGLYCEMIA Stop: 09/10/18 16:06 Dextrose/Water 50 ml/ Dextrose (/Sodium Chloride) 550 mls @ 50 mls/hr IVC .Q11H [facility] Stop: 09/11/18 13:16 Insulin Human Lispro (Humalog) 0 units SQ TIDAC [facility] PRN Reason: Protocol Stop: 09/10/18 16:31 Last Admin: 03/12/18 12:05 Dose: 4 unit Insulin Human Lispro (Humalog) 0 units SQ HS [facility] PRN Reason: Protocol Stop: 09/10/18 21:01 Last Admin: 03/11/18 21:54 Dose: Not Given Levalbuterol HCl (Xopenex) 1.25 mg IH [id number] [facility] Stop: 09/10/18 22:01 Last Admin: 03/12/18 09:55 Dose: 1.25 mg Levofloxacin (Levaquin) 750 mg PO DAILY TAMMY Stop: 09/11/18 14:16 Naloxone HCl (Narcan) 0.4 mg IVP Q2MIN PRN PRN Reason: SEE COMMENTS Stop: 09/10/18 16:08 Nitroglycerin (Nitroglycerin) 0.4 mg SL Q5M PRN PRN Reason: Chest Pain Stop: 09/10/18 16:07 Tramadol HCl (Ultram) 50 mg PO Q6HR PRN PRN Reason: Moderate Pain Stop: 09/10/18 16:08 - Imaging and Cardiology Stress Test: report reviewed Echo: report reviewed Other Results: 12 hour tele: avg HR=69 afib. Frequent PVCs. - EKG Interpretation EKG results cardiology: personally reviewed Consult Discharge Plan - Plan Referrals: Aubrey Vitale MD [Primary Care Provider] - (Your appointment has been requested. Our office will call you with an appointment. ) <Kobe Dan - Last Filed: 03/12/18 16:01> Date of Encounter: 03/12/18 - Attending Attestation Patient was seen and evaluated independently by me. Findings, assessment and plan were discussed at length with patient, questions answered. Agree with nurse practitioner's documentation. Addition as follows, 77 yo CM ho CAD CABG, chronic Afib rate ctr no A/C due to GIB, CKD, DM, HTN. P/ w syncope likely due to hypoglycemia. Consulted for minimal troponin elevation flat w/o dynamic ECG changes. EF 55%. VSS, NAD, INFORMATION SYSTEMS ARCHITECT, IIR, ND NT, pedal edema B/ L. A: type 2 NSTEMI due to hypoglycemia, stable CAD, persistent Afib ok no A/C due to GIB P: no further CV inpatient w/u c/w home meds f/u cardiology clinic Kobe Dan MD, PhD Assessment and Plan Discussion w patient/family: The assessment and plan as outlined above was discussed with the patient and/or family members who expressed understanding and agreement. All questions were answered. Thank you for involving us in the care of your patient. Please call with any questions. History of Present Illness History of present illness: Mr. Dupont is a 77 year old male All Systems Review: The remainder of the systems were reviewed and are negative Physical Examination Vital Signs, Last 4 Hours Temp Pulse Resp BP Pulse Ox 03/12/18 11:59 98.5 F 72 15 179/75 95 Results 03/12/18 01:38 03/12/18 01:38 Lab Results 03/11/18 03/11/18 03/11/18 17:05 20:04 23:00 WBC Hgb Hct Plt Count Sodium Potassium 4.2 Chloride Carbon Dioxide BUN Creatinine Glucose Calcium Magnesium Total Bilirubin 0.8 AST 25 ALT 15 Alkaline Phosphatase 86 Troponin I 0.05 H* 03/12/18 03/12/18 03/12/18 01:38 01:38 01:38 WBC 7.8 Hgb 13.4 Hct 39.8 Plt Count 120 L Sodium 141 Potassium 3.9 Chloride 109 H Carbon Dioxide 26 BUN 16 Creatinine 1.49 H Glucose 44 L Calcium 8.7 Magnesium 1.6 Total Bilirubin 0.8 AST 24 ALT 16 Alkaline Phosphatase 78 Troponin I 0.06 H* 03/12/18 05:15 WBC Hgb Hct Plt Count Sodium Potassium Chloride Carbon Dioxide BUN Creatinine Glucose Calcium Magnesium Total Bilirubin AST ALT Alkaline Phosphatase Troponin I 0.05 H*
[2018-03-12] MEDS ORDERED: levoFLOXacin 750 MG TABLET PO SCH (14:15)
[2018-03-12] MEDS: Dextrose 50 % in Water (Vial) 50 ML in D5% in 0.2% NACL 500 ML IVC SCH (15:00)
[2018-03-12] MEDS: *HR* Heparin 5,000 UNIT/ML VIAL SQ SCH (16:26)
[2018-03-13] MEDS: Dextrose 50 % in Water (Vial) 50 ML in D5% in 0.2% NACL 500 ML IVC SCH (03:47)
[2018-03-13] MEDS: Levalbuterol Neb 1.25 MG/3 ML IH SCH ×2 (03:49→10:25)
[2018-03-13] MEDS: *HR* Heparin 5,000 UNIT/ML VIAL SQ SCH (06:06)
[2018-03-13 06:26] LABS: Basophils % 0.2 %; Eosinophils # 0.2 K/mcL (0.0-0.6); Eosinophils % 3.8 %; Hematocrit 38.3 % (37.5-50.1); Immature Granulocytes % 0.4 % (0-4); Lymphocytes # 1.1 K/mcL (0.6-4.6); Lymphocytes % 22.7 %; Mean Corpuscular HGB Conc 33.9 g/dL (31.6-35.5); Mean Corpuscular Hemoglobin 31.6 pg (28.0-33.3); Mean Platelet Volume 9.1 fL (9.4-12.4); Monocytes # 0.4 K/mcL (0.0-1.3); Monocytes % 8.5 %; Neutrophils # 3.2 K/mcL (1.6-8.9); Platelet Count 103 K/mcL (140-400); Red Blood Count 4.12 M/mcL (4.19-5.50); Red Cell Distribution Width 14.4 % (11.5-14.5); Segmented Neutrophils % 64.4 %
[2018-03-13 06:45] LABS: Albumin 3.3 g/dL (3.5-5.7); Albumin/Globulin Ratio 1.1 (1.1-2.2); Bilirubin,Total 0.6 mg/dL (0.3-1.0); Calcium 8.7 mg/dL (8.6-10.3); Potassium 3.9 mEq/L (3.5-5.1); Total Protein 6.3 g/dL (6.4-8.9)
[2018-03-13] MEDS: Aspirin Enteric Coated 81 MG Tablet PO SCH (08:47)
--- NOTE | 2018-03-13 10:07 | Discharge Summary ---
- NOTES TO OUTPATIENT PROVIDER Notes to Outpatient Provider: Developped hypoglycemia, now home meds insulin Glargine is on hold, plz closely f/u sugar level. Date of Encounter: 03/13/18 Time of Encounter: 09:00 - Discharge Diagnosis (1) Hypoglycemia Priority: Primary Status: Acute (2) Altered mental status Priority: Primary Status: Resolved Qualifiers: Altered mental status type: disorientation Qualified Code(s): R41.0 - Disorientation, unspecified (3) Acute exacerbation of CHF (congestive heart failure) Priority: Secondary Status: Acute Qualifiers: Heart failure type: diastolic Qualified Code(s): I50.33 - Acute on chronic diastolic (congestive) heart failure (4) Thrombocytopenia Priority: Secondary Status: Acute (5) HTN (hypertension) Priority: Secondary Status: Chronic Qualifiers: Hypertension type: essential hypertension Qualified Code(s): I10 - Essential (primary) hypertension (6) HLD (hyperlipidemia) Priority: Secondary Status: Chronic Qualifiers: Hyperlipidemia type: pure hypercholesterolemia Qualified Code(s): E78.00 - Pure hypercholesterolemia, unspecified; E78.0 - Pure hypercholesterolemia (7) Diabetes Priority: Secondary Status: Chronic Qualifiers: Diabetes mellitus type: type 2 Diabetes mellitus morning nanny insulin use: unspecified usp insulin use status Diabetes mellitus complication status : with unspecified complications Qualified Code(s): E11.8 - Type 2 diabetes mellitus with unspecified complications (8) DVT prophylaxis Priority: Secondary Status: Acute (9) CKD (chronic kidney disease) stage 3, GFR 30-59 ml/min Priority: Secondary Status: Chronic (10) Upper respiratory infection Priority: Primary Status: Acute Qualifiers: URI type: unspecified URI Qualified Code(s): J06.9 - Acute upper respiratory infection, unspecified (11) Elevated troponin Priority: Secondary Status: Acute Hospital course: Mr. Dupont is a 77 year old male presented to emergency room for altered mental status and hypoglycemia. Patient also has URI symptoms with mild cough. Patient was placed on closely monitoring and glucose infusion. His symptoms has improved after hypoglycemia has been corrected. Respiratory panel shows Entero/Rhino virus positive. Sputum culture shows positive for Enterobacter, sensitive to Levaquin. By mouth Levaquin started. After treatment, patient's symptoms has improved. Patient off glucose infusion and glucose level is stable. Patient said he knows checking his sugar level by himself and aware of symptoms of hypoglycemia and understanding he needed have meals ready before insulin and take juice or snack if hypoglycemia happens. Patient attributes his hypoglycemia to decreased intake because of recent URI. I have seen and examined the patient today. Patient is awake alert, oriented 3 , denies shortness of breath or chest pain. Vitals are stable. Denies dizziness or lightheaded. Patient will be discharged home and continue follow- up with PCP as outpatient. His long-acting insulin glargine will be temporarily hold and place him on sliding scale only. Patient was instructed to monitor his blood sugar 4 times a day and may adjust his insulin dose later by PCP based on sugar level. - Time Spent with Patient Total time spent providing and/or coordinating discharge services: 40 minutes Greater than 30 minutes - Discharge Medications Prescriptions: GuaiFENesin ER [Mucinex] 600 mg PO BID 6 Days #12 tbbp.12hr levoFLOXacin [Levaquin] 750 mg PO Q48H 6 Days #3 tablet Home Medications: Aspirin [Adult Aspirin] 81 mg PO DAILY 03/11/18 [History] Furosemide [Lasix] 40 mg PO DAILY 03/11/18 [History] Nitroglycerin [Nitrostat] 0.4 mg SL Q5M PRN 03/11/18 [History] Pravastatin Sodium [Pravachol] 40 mg PO QPM 03/11/18 [History] Ramipril [Altace] 10 mg PO DAILY 03/11/18 [History] GuaiFENesin ER [Mucinex] 600 mg PO BID 6 Days #12 tbbp.12hr 03/13/18 [Rx] Insulin LISPRO [HumaLOG] 0 units SQ HS vial 03/13/18 [Rx] Insulin LISPRO [HumaLOG] 0 units SQ TIDAC vial 03/13/18 [Rx] levoFLOXacin [Levaquin] 750 mg PO Q48H 6 Days #3 tablet 03/13/18 [Rx] Allergies/Adverse Reactions: 3 Allergy/AdvReac Type Severity Reaction Status Date / Time Penicillins [PCN] Allergy Rash Verified 07/08/17 09:04 Kybgkpi-Ohy-Kaf Reductase AdvReac See Verified 07/08/17 09:04 Inhibitor Comments [Statins] Date of admission: 03/12/18 15:21 Primary care physician: Aubrey Vitale MD Discharging clinician: Aranza Woodall Anticipated date of discharge: 03/13/18 - Constitutional Vitals: Temp Pulse Resp BP Pulse Ox 98.1 F 64 16 164/71 97 03/13/18 06:56 03/13/18 06:56 03/13/18 06:56 03/13/18 06:56 03/13/18 06:56 General appearance: Present: cooperative, A&O X 3, pleasant, no acute distress, obese, answers questions appropriately Exam: In NAD - Head Head exam: Present: atraumatic, normocephalic - Eye Eye exam: Present: PERRL, conjuntiva pink, sclera anicteric Pupils: Present: PERRL - Neck Neck exam general surgery: Present: supple, trachea midline. Absent: lymphadenopathy - Respiratory Respiratory exam: Present: CTAB. Absent: accessory muscle use, rales, rhonchi, wheezes - Cardiovascular Cardiovascular exam: Present: RRR, +S1, +S2. Absent: diastolic murmur, gallop, rubs, systolic murmur - GI/Abdominal GI/Abdominal exam: Present: normal bowel sounds, soft, no peritoneal signs. Absent: distended, tenderness - Extremities Exam Extremities exam: Present: pedal edema (Mild pedal edema bilaterally), warm, radial pulses palpable and symmetrical. Absent: calf tenderness, cyanotic - Neurological Exam Neurological exam: Present: CN II-XII intact, oriented X3, no focal deficits. Absent: pronater drift, facial droop, speech deficit - Skin Skin exam: Present: dry, intact - Patient Status Disposition: Home, Self-Care Condition: Good Functional capacity at discharge: independent ambulation Overall status at discharge: patient is back to baseline - Discharge Instructions Follow Up With: Aubrey Vitale MD [Primary Care Provider] - (Your appointment has been requested. Our office will call you with an appointment. ) - Diet and Activity Activity: increase activity as tolerated Diet: diabetic diet, low fat, low cholesterol, low salt diet
[2018-03-13] MEDS: Insulin LISPRO 300 UNITS/3 ML VIAL SQ SCH ×2 (10:29→11:59)
[2018-03-13 11:29] VITALS: BP 143/76
--- NOTE | 2018-03-13 15:39 | Emergency Department Note ---
Disposition Clinical Impression: Hypoglycemia, Altered mental status Congestive heart failure Qualifiers: Heart failure type: diastolic Heart failure chronicity: acute on chronic Qualified Code(s): I50.33 - Acute on chronic diastolic (congestive) heart failure Disposition: Admitted As Inpatient Condition: Good General Adult HPI - General Chief complaint: ED General Medical Stated complaint: low BS Time Seen by Provider: 03/11/18 13:18 Source: patient, family, EMS Mode of arrival: EMS Limitations: no limitations - History of Present Illness Pain Scale: 0 - Related Data Home Medications Medication Instructions Recorded Confirmed Aspirin [Adult Aspirin] 81 mg PO DAILY 03/11/18 03/11/18 Furosemide [Lasix] 40 mg PO DAILY 03/11/18 03/11/18 Nitroglycerin [Nitrostat] 0.4 mg SL Q5M PRN 03/11/18 03/11/18 Pravastatin Sodium [Pravachol] 40 mg PO QPM 03/11/18 03/11/18 Ramipril [Altace] 10 mg PO DAILY 03/11/18 03/11/18 Previous Rx's Medication Instructions Recorded GuaiFENesin ER [Mucinex] 600 mg PO BID 6 Days #12 tbbp.12hr 03/13/18 Insulin LISPRO [HumaLOG] 0 units SQ HS vial 03/13/18 Insulin LISPRO [HumaLOG] 0 units SQ TIDAC vial 03/13/18 levoFLOXacin [Levaquin] 750 mg PO Q48H 6 Days #3 tablet 03/13/18 Allergies Allergy/AdvReac Type Severity Reaction Status Date / Time Penicillins [PCN] Allergy Rash Verified 07/08/17 09:04 [id number] Reductase AdvReac See Verified 07/08/17 09:04 Inhibitor Comments [Statins] Past Medical History - Past Medical History Medical history: Reports: atrial fibrillation, coronary artery disease, diabetes , hyperlipidemia, hypertension, renal disease Surgical history: Reports: cancer surgery Psychiatric history: Reports: no psych history - Social History Smoking Status: Former smoker Alcohol use: Reports: none Drug use: Reports: none Physical Exam - General Limitations: no limitations General appearance: alert Course Vital Signs Temperature 97.0 F L 03/11/18 13:13 Pulse Rate 92 03/11/18 13:13 Respiratory Rate 16 03/11/18 13:13 Blood Pressure 161/92 03/11/18 13:13 O2 Sat by Pulse Oximetry 100 09/27/18 13:13 Temperature 97.9 F 03/13/18 11:28 Pulse Rate 54 03/13/18 11:28 Respiratory Rate 16 03/13/18 11:28 Blood Pressure 143/76 03/13/18 11:28 O2 Sat by Pulse Oximetry 98 03/13/18 11:28 Oxygen Delivery Oxygen Delivery Room Air Medical Decision Making - Lab Data Result diagrams: 03/13/18 05:30 03/13/18 05:30 Lab Results 03/11/18 03/11/18 03/11/18 Range/Units 13:43 13:43 13:43 WBC 6.0 (4.3-11.1) K/mcL RBC 4.44 (4.19-5.50) M/mcL Hgb 14.1 (12.9-16.9) g/dL Hct 42.4 (37.5-50.1) % MCV 95.5 (83.0-100.0) fL MCH 31.8 (28.0-33.3) pg MCHC 33.3 (31.6-35.5) g/dL RDW 14.1 (11.5-14.5) % Plt Count 94 L (140-400) K/mcL MPV 9.0 L (9.4-12.4) fL Immature Gran % 0.3 (0-4) % Seg Neutrophils % 87.3 % Lymphocytes % 8.5 % Monocytes % 3.5 % Eosinophils % 0.2 % Basophils % 0.2 % Neutrophils # 5.2 (1.6-8.9) K/mcL Lymphocytes # 0.5 L (0.6-4.6) K/mcL Monocytes # 0.2 (0.0-1.3) K/mcL Eosinophils # 0.0 (0.0-0.6) K/mcL Basophils # 0.0 (0.0-0.2) K/mcL Sodium (136-145) mEq/L Potassium (3.5-5.1) mEq/L Chloride (98-107) mEq/L Carbon Dioxide (23-29) mEq/L BUN (8-23) mg/dL Creatinine (0.70-1.30) mg/dL Est GFR ( Amer) (> 60) Est GFR (Non-Af Amer) (> 60) BUN/Creatinine Ratio (6-26) Glucose (70-105) mg/dL POC Glucose (70-99) mg/dL Est Mean Plasma Glucose mg/dl Hemoglobin A1c ( - 5.6) % Calculated Osmolality (280-300) Lactic Acid 1.5 (0.5-2.2) mmol/L Calcium (8.6-10.3) mg/dL Magnesium (1.6-2.6) mg/dL Iron (65-175) mcg/dL % Saturation (20-55) % Transferrin (203-362) mg/dL Total Bilirubin (0.3-1.0) mg/dL Direct Bilirubin (0.0-0.2) mg/dL Indirect Bilirubin (0.0-1.2) mg/dL AST (13-39) Units/L ALT (7-52) Units/L Alkaline Phosphatase (34-104) Units/L Troponin I (< 0.04) ng/mL B-Natriuretic Peptide 246 H (Less than 100) pg/mL Serum Total Protein (6.4-8.9) g/dL Albumin (3.5-5.7) g/dL Globulin (2.4-3.5) g/dL Albumin/Globulin Ratio (1.1-2.2) Triglycerides (< 150) mg/dL Cholesterol (< 200) mg/dL LDL Cholesterol, Calc (0-99) mg/dL VLDL Cholesterol, Calc (< 31) mg/dL HDL Cholesterol (40-59) mg/dL Cholesterol/HDL Ratio (0-4.9) Vitamin B12 (250-1100) pg/mL Folate (3.0-16.0) ng/mL Urine Color (Yellow) Urine Clarity (Clear) Urine pH (5.0-8.0) pH Units Ur Specific Jay (1.010-1.025) Urine Protein (Neg-Trace) mg/dL Urine Glucose (UA) (Normal) mg/dL Urine Ketones (Negative) mg/dL Urine Blood (Negative) Urine Nitrite (Negative) Urine Bilirubin (Negative) Urine Urobilinogen (Normal) mg/dL Ur Leukocyte Esterase (Negative) Ur Culture Indicated? (NO) Chlamy pneumoniae PCR (Not Detect) Adenovirus (PCR) (Not Detect) B. pertussis DNA (PCR) (Not Detect) B.parapertussis DNA PCR (Not Detect) Coronavirus OC43 (PCR) (Not Detect) Coronavirus HKU1 (PCR) (Not Detect) Coronavirus 229E (PCR) (Not Detect) Coronavirus NL63 (PCR) (Not Detect) Human Metapneumovir PCR (Not Detect) Influenza A (H1) PCR (Not Detect) Influ A (H1N1/09) PCR (Not Detect) Influenza A (H3) PCR (Not Detect) Influenza A Untype (PCR) (Not Detect) Influenza Type B (PCR) (Not Detect) M.pneumoniae DNA (PCR) (Not Detect) Parainfluenza 1 (PCR) (Not Detect) Parainfluenza 2 (PCR) (Not Detect) Parainfluenza 3 (PCR) (Not Detect) Parainfluenza 4 (PCR) (Not Detect) RSV (PCR) (Not Detect) Entero/Rhino (PCR) (Not Detect) 03/11/18 03/11/18 03/11/18 Range/Units 13:43 14:10 16:35 WBC (4.3-11.1) K/mcL RBC (4.19-5.50) M/mcL Hgb (12.9-16.9) g/dL Hct (37.5-50.1) % MCV (83.0-100.0) fL MCH (28.0-33.3) pg MCHC (31.6-35.5) g/dL RDW (11.5-14.5) % Plt Count (140-400) K/mcL MPV (9.4-12.4) fL Immature Gran % (0-4) % Seg Neutrophils % % Lymphocytes % % Monocytes % % Eosinophils % % Basophils % % Neutrophils # (1.6-8.9) K/mcL Lymphocytes # (0.6-4.6) K/mcL Monocytes # (0.0-1.3) K/mcL Eosinophils # (0.0-0.6) K/mcL Basophils # (0.0-0.2) K/mcL Sodium 140 (136-145) mEq/L Potassium 3.4 L (3.5-5.1) mEq/L Chloride 108 H (98-107) mEq/L Carbon Dioxide 23 (23-29) mEq/L BUN 15 (8-23) mg/dL Creatinine 1.33 H (0.70-1.30) mg/dL Est GFR ( Amer) > 60 (> 60) Est GFR (Non-Af Amer) 52 L (> 60) BUN/Creatinine Ratio 11 (6-26) Glucose 160 H (70-105) mg/dL POC Glucose 150 H 101 H (70-99) mg/dL Est Mean Plasma Glucose mg/dl Hemoglobin A1c ( - 5.6) % Calculated Osmolality 294 (280-300) Lactic Acid (0.5-2.2) mmol/L Calcium 8.9 (8.6-10.3) mg/dL Magnesium (1.6-2.6) mg/dL Iron (65-175) mcg/dL % Saturation (20-55) % Transferrin (203-362) mg/dL Total Bilirubin (0.3-1.0) mg/dL Direct Bilirubin (0.0-0.2) mg/dL Indirect Bilirubin (0.0-1.2) mg/dL AST (13-39) Units/L ALT (7-52) Units/L Alkaline Phosphatase (34-104) Units/L Troponin I 0.03 (< 0.04) ng/mL B-Natriuretic Peptide (Less than 100) pg/mL Serum Total Protein (6.4-8.9) g/dL Albumin (3.5-5.7) g/dL Globulin (2.4-3.5) g/dL Albumin/Globulin Ratio (1.1-2.2) Triglycerides (< 150) mg/dL Cholesterol (< 200) mg/dL LDL Cholesterol, Calc (0-99) mg/dL VLDL Cholesterol, Calc (< 31) mg/dL HDL Cholesterol (40-59) mg/dL Cholesterol/HDL Ratio (0-4.9) Vitamin B12 (250-1100) pg/mL Folate (3.0-16.0) ng/mL Urine Color (Yellow) Urine Clarity (Clear) Urine pH (5.0-8.0) pH Units Ur Specific Jay (1.010-1.025) Urine Protein (Neg-Trace) mg/dL Urine Glucose (UA) (Normal) mg/dL Urine Ketones (Negative) mg/dL Urine Blood (Negative) Urine Nitrite (Negative) Urine Bilirubin (Negative) Urine Urobilinogen (Normal) mg/dL Ur Leukocyte Esterase (Negative) Ur Culture Indicated? (NO) Chlamy pneumoniae PCR (Not Detect) Adenovirus (PCR) (Not Detect) B. pertussis DNA (PCR) (Not Detect) B.parapertussis DNA PCR (Not Detect) Coronavirus OC43 (PCR) (Not Detect) Coronavirus HKU1 (PCR) (Not Detect) Coronavirus 229E (PCR) (Not Detect) Coronavirus NL63 (PCR) (Not Detect) Human Metapneumovir PCR (Not Detect) Influenza A (H1) PCR (Not Detect) Influ A (H1N1/09) PCR (Not Detect) Influenza A (H3) PCR (Not Detect) Influenza A Untype (PCR) (Not Detect) Influenza Type B (PCR) (Not Detect) M.pneumoniae DNA (PCR) (Not Detect) Parainfluenza 1 (PCR) (Not Detect) Parainfluenza 2 (PCR) (Not Detect) Parainfluenza 3 (PCR) (Not Detect) Parainfluenza 4 (PCR) (Not Detect) RSV (PCR) (Not Detect) Entero/Rhino (PCR) (Not Detect) 03/11/18 03/11/18 03/11/18 Range/Units 17:05 17:05 17:35 WBC (4.3-11.1) K/mcL RBC (4.19-5.50) M/mcL Hgb (12.9-16.9) g/dL Hct (37.5-50.1) % MCV (83.0-100.0) fL MCH (28.0-33.3) pg MCHC (31.6-35.5) g/dL RDW (11.5-14.5) % Plt Count (140-400) K/mcL MPV (9.4-12.4) fL Immature Gran % (0-4) % Seg Neutrophils % % Lymphocytes % % Monocytes % % Eosinophils % % Basophils % % Neutrophils # (1.6-8.9) K/mcL Lymphocytes # (0.6-4.6) K/mcL Monocytes # (0.0-1.3) K/mcL Eosinophils # (0.0-0.6) K/mcL Basophils # (0.0-0.2) K/mcL Sodium (136-145) mEq/L Potassium (3.5-5.1) mEq/L Chloride (98-107) mEq/L Carbon Dioxide (23-29) mEq/L BUN (8-23) mg/dL Creatinine (0.70-1.30) mg/dL Est GFR ( Amer) (> 60) Est GFR (Non-Af Amer) (> 60) BUN/Creatinine Ratio (6-26) Glucose (70-105) mg/dL POC Glucose (70-99) mg/dL Est Mean Plasma Glucose mg/dl Hemoglobin A1c ( - 5.6) % Calculated Osmolality (280-300) Lactic Acid (0.5-2.2) mmol/L Calcium (8.6-10.3) mg/dL Magnesium (1.6-2.6) mg/dL Iron 88 (65-175) mcg/dL % Saturation 25 (20-55) % Transferrin 248 (203-362) mg/dL Total Bilirubin 0.8 (0.3-1.0) mg/dL Direct Bilirubin 0.3 H (0.0-0.2) mg/dL Indirect Bilirubin 0.5 (0.0-1.2) mg/dL AST 25 (13-39) Units/L ALT 15 (7-52) Units/L Alkaline Phosphatase 86 (34-104) Units/L Troponin I (< 0.04) ng/mL B-Natriuretic Peptide (Less than 100) pg/mL Serum Total Protein 6.2 L (6.4-8.9) g/dL Albumin 3.5 (3.5-5.7) g/dL Globulin 2.7 (2.4-3.5) g/dL Albumin/Globulin Ratio 1.3 (1.1-2.2) Triglycerides (< 150) mg/dL Cholesterol (< 200) mg/dL LDL Cholesterol, Calc (0-99) mg/dL VLDL Cholesterol, Calc (< 31) mg/dL HDL Cholesterol (40-59) mg/dL Cholesterol/HDL Ratio (0-4.9) Vitamin B12 113 L (250-1100) pg/mL Folate 12.9 (3.0-16.0) ng/mL Urine Color (Yellow) Urine Clarity (Clear) Urine pH (5.0-8.0) pH Units Ur Specific Jay (1.010-1.025) Urine Protein (Neg-Trace) mg/dL Urine Glucose (UA) (Normal) mg/dL Urine Ketones (Negative) mg/dL Urine Blood (Negative) Urine Nitrite (Negative) Urine Bilirubin (Negative) Urine Urobilinogen (Normal) mg/dL Ur Leukocyte Esterase (Negative) Ur Culture Indicated? (NO) Chlamy pneumoniae PCR Not Detected (Not Detect) Adenovirus (PCR) Not Detected (Not Detect) B. pertussis DNA (PCR) Not Detected (Not Detect) B.parapertussis DNA PCR Not Detected (Not Detect) Coronavirus OC43 (PCR) Not Detected (Not Detect) Coronavirus HKU1 (PCR) Not Detected (Not Detect) Coronavirus 229E (PCR) Not Detected (Not Detect) Coronavirus NL63 (PCR) Not Detected (Not Detect) Human Metapneumovir PCR Not Detected (Not Detect) Influenza A (H1) PCR Not Detected (Not Detect) Influ A (H1N1/09) PCR Not Detected (Not Detect) Influenza A (H3) PCR Not Detected (Not Detect) Influenza A Untype (PCR) Not Detected (Not Detect) Influenza Type B (PCR) Not Detected (Not Detect) M.pneumoniae DNA (PCR) Not Detected (Not Detect) Parainfluenza 1 (PCR) Not Detected (Not Detect) Parainfluenza 2 (PCR) Not Detected (Not Detect) Parainfluenza 3 (PCR) Not Detected (Not Detect) Parainfluenza 4 (PCR) Not Detected (Not Detect) RSV (PCR) Not Detected (Not Detect) Entero/Rhino (PCR) DETECTED A (Not Detect) 03/11/18 03/11/18 03/11/18 Range/Units 20:04 21:20 21:22 WBC (4.3-11.1) K/mcL RBC (4.19-5.50) M/mcL Hgb (12.9-16.9) g/dL Hct (37.5-50.1) % MCV (83.0-100.0) fL MCH (28.0-33.3) pg MCHC (31.6-35.5) g/dL RDW (11.5-14.5) % Plt Count (140-400) K/mcL MPV (9.4-12.4) fL Immature Gran % (0-4) % Seg Neutrophils % % Lymphocytes % % Monocytes % % Eosinophils % % Basophils % % Neutrophils # (1.6-8.9) K/mcL Lymphocytes # (0.6-4.6) K/mcL Monocytes # (0.0-1.3) K/mcL Eosinophils # (0.0-0.6) K/mcL Basophils # (0.0-0.2) K/mcL Sodium (136-145) mEq/L Potassium (3.5-5.1) mEq/L Chloride (98-107) mEq/L Carbon Dioxide (23-29) mEq/L BUN (8-23) mg/dL Creatinine (0.70-1.30) mg/dL Est GFR ( Amer) (> 60) Est GFR (Non-Af Amer) (> 60) BUN/Creatinine Ratio (6-26) Glucose (70-105) mg/dL POC Glucose 101 H (70-99) mg/dL Est Mean Plasma Glucose mg/dl Hemoglobin A1c ( - 5.6) % Calculated Osmolality (280-300) Lactic Acid (0.5-2.2) mmol/L Calcium (8.6-10.3) mg/dL Magnesium (1.6-2.6) mg/dL Iron (65-175) mcg/dL % Saturation (20-55) % Transferrin (203-362) mg/dL Total Bilirubin (0.3-1.0) mg/dL Direct Bilirubin (0.0-0.2) mg/dL Indirect Bilirubin (0.0-1.2) mg/dL AST (13-39) Units/L ALT (7-52) Units/L Alkaline Phosphatase (34-104) Units/L Troponin I 0.05 H* (< 0.04) ng/mL B-Natriuretic Peptide (Less than 100) pg/mL Serum Total Protein (6.4-8.9) g/dL Albumin (3.5-5.7) g/dL Globulin (2.4-3.5) g/dL Albumin/Globulin Ratio (1.1-2.2) Triglycerides (< 150) mg/dL Cholesterol (< 200) mg/dL LDL Cholesterol, Calc (0-99) mg/dL VLDL Cholesterol, Calc (< 31) mg/dL HDL Cholesterol (40-59) mg/dL Cholesterol/HDL Ratio (0-4.9) Vitamin B12 (250-1100) pg/mL Folate (3.0-16.0) ng/mL Urine Color Yellow (Yellow) Urine Clarity Clear (Clear) Urine pH 6.0 (5.0-8.0) pH Units Ur Specific Jay 1.015 (1.010-1.025) Urine Protein Negative (Neg-Trace) mg/dL Urine Glucose (UA) Normal (Normal) mg/dL Urine Ketones Negative (Negative) mg/dL Urine Blood Negative (Negative) Urine Nitrite Negative (Negative) Urine Bilirubin Negative (Negative) Urine Urobilinogen Normal (Normal) mg/dL Ur Leukocyte Esterase Negative (Negative) Ur Culture Indicated? NO (NO) Chlamy pneumoniae PCR (Not Detect) Adenovirus (PCR) (Not Detect) B. pertussis DNA (PCR) (Not Detect) B.parapertussis DNA PCR (Not Detect) Coronavirus OC43 (PCR) (Not Detect) Coronavirus HKU1 (PCR) (Not Detect) Coronavirus 229E (PCR) (Not Detect) Coronavirus NL63 (PCR) (Not Detect) Human Metapneumovir PCR (Not Detect) Influenza A (H1) PCR (Not Detect) Influ A (H1N1/09) PCR (Not Detect) Influenza A (H3) PCR (Not Detect) Influenza A Untype (PCR) (Not Detect) Influenza Type B (PCR) (Not Detect) M.pneumoniae DNA (PCR) (Not Detect) Parainfluenza 1 (PCR) (Not Detect) Parainfluenza 2 (PCR) (Not Detect) Parainfluenza 3 (PCR) (Not Detect) Parainfluenza 4 (PCR) (Not Detect) RSV (PCR) (Not Detect) Entero/Rhino (PCR) (Not Detect) 03/11/18 03/12/18 03/12/18 Range/Units 23:00 01:38 01:38 WBC 7.8 (4.3-11.1) K/mcL RBC 4.27 (4.19-5.50) M/mcL Hgb 13.4 (12.9-16.9) g/dL Hct 39.8 (37.5-50.1) % MCV 93.2 (83.0-100.0) fL MCH 31.4 (28.0-33.3) pg MCHC 33.7 (31.6-35.5) g/dL RDW 14.1 (11.5-14.5) % Plt Count 120 L (140-400) K/mcL MPV 8.9 L (9.4-12.4) fL Immature Gran % 0.4 (0-4) % Seg Neutrophils % 72.6 % Lymphocytes % 17.8 % Monocytes % 7.4 % Eosinophils % 1.5 % Basophils % 0.3 % Neutrophils # 5.7 (1.6-8.9) K/mcL Lymphocytes # 1.4 (0.6-4.6) K/mcL Monocytes # 0.6 (0.0-1.3) K/mcL Eosinophils # 0.1 (0.0-0.6) K/mcL Basophils # 0.0 (0.0-0.2) K/mcL Sodium 141 (136-145) mEq/L Potassium 4.2 3.9 (3.5-5.1) mEq/L Chloride 109 H (98-107) mEq/L Carbon Dioxide 26 (23-29) mEq/L BUN 16 (8-23) mg/dL Creatinine 1.49 H (0.70-1.30) mg/dL Est GFR ( Amer) 55 L (> 60) Est GFR (Non-Af Amer) 46 L (> 60) BUN/Creatinine Ratio 11 (6-26) Glucose 44 L (70-105) mg/dL POC Glucose (70-99) mg/dL Est Mean Plasma Glucose mg/dl Hemoglobin A1c ( - 5.6) % Calculated Osmolality 290 (280-300) Lactic Acid (0.5-2.2) mmol/L Calcium 8.7 (8.6-10.3) mg/dL Magnesium 1.6 (1.6-2.6) mg/dL Iron (65-175) mcg/dL % Saturation (20-55) % Transferrin (203-362) mg/dL Total Bilirubin 0.8 (0.3-1.0) mg/dL Direct Bilirubin (0.0-0.2) mg/dL Indirect Bilirubin (0.0-1.2) mg/dL AST 24 (13-39) Units/L ALT 16 (7-52) Units/L Alkaline Phosphatase 78 (34-104) Units/L Troponin I (< 0.04) ng/mL B-Natriuretic Peptide (Less than 100) pg/mL Serum Total Protein 6.3 L (6.4-8.9) g/dL Albumin 3.3 L (3.5-5.7) g/dL Globulin 3.0 (2.4-3.5) g/dL Albumin/Globulin Ratio 1.1 (1.1-2.2) Triglycerides 112 (< 150) mg/dL Cholesterol 100 (< 200) mg/dL LDL Cholesterol, Calc 49 (0-99) mg/dL VLDL Cholesterol, Calc 22 (< 31) mg/dL HDL Cholesterol 29 L (40-59) mg/dL Cholesterol/HDL Ratio 3.4 (0-4.9) Vitamin B12 (250-1100) pg/mL Folate (3.0-16.0) ng/mL Urine Color (Yellow) Urine Clarity (Clear) Urine pH (5.0-8.0) pH Units Ur Specific Jay (1.010-1.025) Urine Protein (Neg-Trace) mg/dL Urine Glucose (UA) (Normal) mg/dL Urine Ketones (Negative) mg/dL Urine Blood (Negative) Urine Nitrite (Negative) Urine Bilirubin (Negative) Urine Urobilinogen (Normal) mg/dL Ur Leukocyte Esterase (Negative) Ur Culture Indicated? (NO) Chlamy pneumoniae PCR (Not Detect) Adenovirus (PCR) (Not Detect) B. pertussis DNA (PCR) (Not Detect) B.parapertussis DNA PCR (Not Detect) Coronavirus OC43 (PCR) (Not Detect) Coronavirus HKU1 (PCR) (Not Detect) Coronavirus 229E (PCR) (Not Detect) Coronavirus NL63 (PCR) (Not Detect) Human Metapneumovir PCR (Not Detect) Influenza A (H1) PCR (Not Detect) Influ A (H1N1/09) PCR (Not Detect) Influenza A (H3) PCR (Not Detect) Influenza A Untype (PCR) (Not Detect) Influenza Type B (PCR) (Not Detect) M.pneumoniae DNA (PCR) (Not Detect) Parainfluenza 1 (PCR) (Not Detect) Parainfluenza 2 (PCR) (Not Detect) Parainfluenza 3 (PCR) (Not Detect) Parainfluenza 4 (PCR) (Not Detect) RSV (PCR) (Not Detect) Entero/Rhino (PCR) (Not Detect) 03/12/18 03/12/18 03/12/18 Range/Units 01:38 01:38 03:49 WBC (4.3-11.1) K/mcL RBC (4.19-5.50) M/mcL Hgb (12.9-16.9) g/dL Hct (37.5-50.1) % MCV (83.0-100.0) fL MCH (28.0-33.3) pg MCHC (31.6-35.5) g/dL RDW (11.5-14.5) % Plt Count (140-400) K/mcL MPV (9.4-12.4) fL Immature Gran % (0-4) % Seg Neutrophils % % Lymphocytes % % Monocytes % % Eosinophils % % Basophils % % Neutrophils # (1.6-8.9) K/mcL Lymphocytes # (0.6-4.6) K/mcL Monocytes # (0.0-1.3) K/mcL Eosinophils # (0.0-0.6) K/mcL Basophils # (0.0-0.2) K/mcL Sodium (136-145) mEq/L Potassium (3.5-5.1) mEq/L Chloride (98-107) mEq/L Carbon Dioxide (23-29) mEq/L BUN (8-23) mg/dL Creatinine (0.70-1.30) mg/dL Est GFR ( Amer) (> 60) Est GFR (Non-Af Amer) (> 60) BUN/Creatinine Ratio (6-26) Glucose (70-105) mg/dL POC Glucose 46 L* (70-99) mg/dL Est Mean Plasma Glucose 140 mg/dl Hemoglobin A1c 6.5 H ( - 5.6) % Calculated Osmolality (280-300) Lactic Acid (0.5-2.2) mmol/L Calcium (8.6-10.3) mg/dL Magnesium (1.6-2.6) mg/dL Iron (65-175) mcg/dL % Saturation (20-55) % Transferrin (203-362) mg/dL Total Bilirubin (0.3-1.0) mg/dL Direct Bilirubin (0.0-0.2) mg/dL Indirect Bilirubin (0.0-1.2) mg/dL AST (13-39) Units/L ALT (7-52) Units/L Alkaline Phosphatase (34-104) Units/L Troponin I 0.06 H* (< 0.04) ng/mL B-Natriuretic Peptide (Less than 100) pg/mL Serum Total Protein (6.4-8.9) g/dL Albumin (3.5-5.7) g/dL Globulin (2.4-3.5) g/dL Albumin/Globulin Ratio (1.1-2.2) Triglycerides (< 150) mg/dL Cholesterol (< 200) mg/dL LDL Cholesterol, Calc (0-99) mg/dL VLDL Cholesterol, Calc (< 31) mg/dL HDL Cholesterol (40-59) mg/dL Cholesterol/HDL Ratio (0-4.9) Vitamin B12 (250-1100) pg/mL Folate (3.0-16.0) ng/mL Urine Color (Yellow) Urine Clarity (Clear) Urine pH (5.0-8.0) pH Units Ur Specific Jay (1.010-1.025) Urine Protein (Neg-Trace) mg/dL Urine Glucose (UA) (Normal) mg/dL Urine Ketones (Negative) mg/dL Urine Blood (Negative) Urine Nitrite (Negative) Urine Bilirubin (Negative) Urine Urobilinogen (Normal) mg/dL Ur Leukocyte Esterase (Negative) Ur Culture Indicated? (NO) Chlamy pneumoniae PCR (Not Detect) Adenovirus (PCR) (Not Detect) B. pertussis DNA (PCR) (Not Detect) B.parapertussis DNA PCR (Not Detect) Coronavirus OC43 (PCR) (Not Detect) Coronavirus HKU1 (PCR) (Not Detect) Coronavirus 229E (PCR) (Not Detect) Coronavirus NL63 (PCR) (Not Detect) Human Metapneumovir PCR (Not Detect) Influenza A (H1) PCR (Not Detect) Influ A (H1N1/09) PCR (Not Detect) Influenza A (H3) PCR (Not Detect) Influenza A Untype (PCR) (Not Detect) Influenza Type B (PCR) (Not Detect) M.pneumoniae DNA (PCR) (Not Detect) Parainfluenza 1 (PCR) (Not Detect) Parainfluenza 2 (PCR) (Not Detect) Parainfluenza 3 (PCR) (Not Detect) Parainfluenza 4 (PCR) (Not Detect) RSV (PCR) (Not Detect) Entero/Rhino (PCR) (Not Detect) 03/12/18 03/12/18 03/12/18 Range/Units 03:51 04:36 05:15 WBC (4.3-11.1) K/mcL RBC (4.19-5.50) M/mcL Hgb (12.9-16.9) g/dL Hct (37.5-50.1) % MCV (83.0-100.0) fL MCH (28.0-33.3) pg MCHC (31.6-35.5) g/dL RDW (11.5-14.5) % Plt Count (140-400) K/mcL MPV (9.4-12.4) fL Immature Gran % (0-4) % Seg Neutrophils % % Lymphocytes % % Monocytes % % Eosinophils % % Basophils % % Neutrophils # (1.6-8.9) K/mcL Lymphocytes # (0.6-4.6) K/mcL Monocytes # (0.0-1.3) K/mcL Eosinophils # (0.0-0.6) K/mcL Basophils # (0.0-0.2) K/mcL Sodium (136-145) mEq/L Potassium (3.5-5.1) mEq/L Chloride (98-107) mEq/L Carbon Dioxide (23-29) mEq/L BUN (8-23) mg/dL Creatinine (0.70-1.30) mg/dL Est GFR ( Amer) (> 60) Est GFR (Non-Af Amer) (> 60) BUN/Creatinine Ratio (6-26) Glucose (70-105) mg/dL POC Glucose 45 L* 104 H (70-99) mg/dL Est Mean Plasma Glucose mg/dl Hemoglobin A1c ( - 5.6) % Calculated Osmolality (280-300) Lactic Acid (0.5-2.2) mmol/L Calcium (8.6-10.3) mg/dL Magnesium (1.6-2.6) mg/dL Iron (65-175) mcg/dL % Saturation (20-55) % Transferrin (203-362) mg/dL Total Bilirubin (0.3-1.0) mg/dL Direct Bilirubin (0.0-0.2) mg/dL Indirect Bilirubin (0.0-1.2) mg/dL AST (13-39) Units/L ALT (7-52) Units/L Alkaline Phosphatase (34-104) Units/L Troponin I 0.05 H* (< 0.04) ng/mL B-Natriuretic Peptide (Less than 100) pg/mL Serum Total Protein (6.4-8.9) g/dL Albumin (3.5-5.7) g/dL Globulin (2.4-3.5) g/dL Albumin/Globulin Ratio (1.1-2.2) Triglycerides (< 150) mg/dL Cholesterol (< 200) mg/dL LDL Cholesterol, Calc (0-99) mg/dL VLDL Cholesterol, Calc (< 31) mg/dL HDL Cholesterol (40-59) mg/dL Cholesterol/HDL Ratio (0-4.9) Vitamin B12 (250-1100) pg/mL Folate (3.0-16.0) ng/mL Urine Color (Yellow) Urine Clarity (Clear) Urine pH (5.0-8.0) pH Units Ur Specific Jay (1.010-1.025) Urine Protein (Neg-Trace) mg/dL Urine Glucose (UA) (Normal) mg/dL Urine Ketones (Negative) mg/dL Urine Blood (Negative) Urine Nitrite (Negative) Urine Bilirubin (Negative) Urine Urobilinogen (Normal) mg/dL Ur Leukocyte Esterase (Negative) Ur Culture Indicated? (NO) Chlamy pneumoniae PCR (Not Detect) Adenovirus (PCR) (Not Detect) B. pertussis DNA (PCR) (Not Detect) B.parapertussis DNA PCR (Not Detect) Coronavirus OC43 (PCR) (Not Detect) Coronavirus HKU1 (PCR) (Not Detect) Coronavirus 229E (PCR) (Not Detect) Coronavirus NL63 (PCR) (Not Detect) Human Metapneumovir PCR (Not Detect) Influenza A (H1) PCR (Not Detect) Influ A (H1N1/09) PCR (Not Detect) Influenza A (H3) PCR (Not Detect) Influenza A Untype (PCR) (Not Detect) Influenza Type B (PCR) (Not Detect) M.pneumoniae DNA (PCR) (Not Detect) Parainfluenza 1 (PCR) (Not Detect) Parainfluenza 2 (PCR) (Not Detect) Parainfluenza 3 (PCR) (Not Detect) Parainfluenza 4 (PCR) (Not Detect) RSV (PCR) (Not Detect) Entero/Rhino (PCR) (Not Detect) 03/12/18 Range/Units 11:58 WBC (4.3-11.1) K/mcL RBC (4.19-5.50) M/mcL Hgb (12.9-16.9) g/dL Hct (37.5-50.1) % MCV (83.0-100.0) fL MCH (28.0-33.3) pg MCHC (31.6-35.5) g/dL RDW (11.5-14.5) % Plt Count (140-400) K/mcL MPV (9.4-12.4) fL Immature Gran % (0-4) % Seg Neutrophils % % Lymphocytes % % Monocytes % % Eosinophils % % Basophils % % Neutrophils # (1.6-8.9) K/mcL Lymphocytes # (0.6-4.6) K/mcL Monocytes # (0.0-1.3) K/mcL Eosinophils # (0.0-0.6) K/mcL Basophils # (0.0-0.2) K/mcL Sodium (136-145) mEq/L Potassium (3.5-5.1) mEq/L Chloride (98-107) mEq/L Carbon Dioxide (23-29) mEq/L BUN (8-23) mg/dL Creatinine (0.70-1.30) mg/dL Est GFR ( Amer) (> 60) Est GFR (Non-Af Amer) (> 60) BUN/Creatinine Ratio (6-26) Glucose (70-105) mg/dL POC Glucose 183 H (70-99) mg/dL Est Mean Plasma Glucose mg/dl Hemoglobin A1c ( - 5.6) % Calculated Osmolality (280-300) Lactic Acid (0.5-2.2) mmol/L Calcium (8.6-10.3) mg/dL Magnesium (1.6-2.6) mg/dL Iron (65-175) mcg/dL % Saturation (20-55) % Transferrin (203-362) mg/dL Total Bilirubin (0.3-1.0) mg/dL Direct Bilirubin (0.0-0.2) mg/dL Indirect Bilirubin (0.0-1.2) mg/dL AST (13-39) Units/L ALT (7-52) Units/L Alkaline Phosphatase (34-104) Units/L Troponin I (< 0.04) ng/mL B-Natriuretic Peptide (Less than 100) pg/mL Serum Total Protein (6.4-8.9) g/dL Albumin (3.5-5.7) g/dL Globulin (2.4-3.5) g/dL Albumin/Globulin Ratio (1.1-2.2) Triglycerides (< 150) mg/dL Cholesterol (< 200) mg/dL LDL Cholesterol, Calc (0-99) mg/dL VLDL Cholesterol, Calc (< 31) mg/dL HDL Cholesterol (40-59) mg/dL Cholesterol/HDL Ratio (0-4.9) Vitamin B12 (250-1100) pg/mL Folate (3.0-16.0) ng/mL Urine Color (Yellow) Urine Clarity (Clear) Urine pH (5.0-8.0) pH Units Ur Specific Jay (1.010-1.025) Urine Protein (Neg-Trace) mg/dL Urine Glucose (UA) (Normal) mg/dL Urine Ketones (Negative) mg/dL Urine Blood (Negative) Urine Nitrite (Negative) Urine Bilirubin (Negative) Urine Urobilinogen (Normal) mg/dL Ur Leukocyte Esterase (Negative) Ur Culture Indicated? (NO) Chlamy pneumoniae PCR (Not Detect) Adenovirus (PCR) (Not Detect) B. pertussis DNA (PCR) (Not Detect) B.parapertussis DNA PCR (Not Detect) Coronavirus OC43 (PCR) (Not Detect) Coronavirus HKU1 (PCR) (Not Detect) Coronavirus 229E (PCR) (Not Detect) Coronavirus NL63 (PCR) (Not Detect) Human Metapneumovir PCR (Not Detect) Influenza A (H1) PCR (Not Detect) Influ A (H1N1/09) PCR (Not Detect) Influenza A (H3) PCR (Not Detect) Influenza A Untype (PCR) (Not Detect) Influenza Type B (PCR) (Not Detect) M.pneumoniae DNA (PCR) (Not Detect) Parainfluenza 1 (PCR) (Not Detect) Parainfluenza 2 (PCR) (Not Detect) Parainfluenza 3 (PCR) (Not Detect) Parainfluenza 4 (PCR) (Not Detect) RSV (PCR) (Not Detect) Entero/Rhino (PCR) (Not Detect) Attestation Statement - Attestation Attestation: I examined this patient and my medical decision-making was reviewed with the Resident Physician. I agree with the documented findings, disposition and treatment plan as described except to the extent set forth below. No lateralizing deficits on exam. Significant improvement after administration of glucose in the ED.
[2018-03-14] MEDS ORDERED: levoFLOXacin 750 MG TABLET PO SCH (09:00)
--- NOTE | 2018-03-14 21:28 | Electrocardiograph Report ---
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
--- NOTE | 2018-03-14 21:53 | Electrocardiograph Report ---
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
== END 2018-03-13 12:30 | disposition home or self-care (01) | DRG 637 ==
LOC: EMEROOARM 13:11 → 3BNU 13:11 → SUATTDRO 14:40 → 3BNU 16:10
PROVIDERS: ADMIT Internal Medicine; ATTEND Internal Medicine

== ENCOUNTER 2019-05-31 10:22 | Inpatient (IN) ==
[2019-05-31 10:41] LABS: Hematocrit 26.8 % (37.5-50.1); Hemoglobin 9.1 g/dL (12.9-16.9); Mean Corpuscular Volume 94.4 fL (83.0-100.0); Mean Platelet Volume 8.6 fL (9.4-12.4); Platelet Count 168 K/mcL (140-400); Red Blood Count 2.84 M/mcL (4.19-5.50); Red Cell Distribution Width 14.5 % (11.5-14.5); White Blood Count 10.2 K/mcL (4.3-11.1)
[2019-05-31 10:58] LABS: Activated Partial Thrombo Time 104.5 Seconds (26.0-36.0)
[2019-05-31] MEDS ORDERED: Isovue-370 500 ML BOTTLE IVP ONE (11:04)
[2019-05-31 11:05] LABS: Prothrombin Time 283.5 Seconds (9.4-12.1); Troponin I 0.12 ng/mL (< 0.04)
[2019-05-31 11:06] LABS: INR 24.9
[2019-05-31 11:11] LABS: Bilirubin,Urine Small (Negative); Blood,Urine Negative (Negative); Clarity,Urine Clear (Clear); Color,Urine Yellow (Yellow); Glucose,Urine (UA) Normal (Normal); Ketones,Urine Negative (Negative); Leukocyte Esterase,Urine Moderate (Negative); Nitrite,Urine Negative (Negative); PH,Urine 5.5 pH Units (5.0-8.0); Protein,Urine Negative (Neg-Trace); Specific Gravity,Urine 1.018 (1.010-1.025); Urobilinogen,Urine Normal (Normal)
[2019-05-31 11:13] LABS: Bacteria,Urine None Seen per hpf (None-Few); Hyaline Casts,Urine None Seen per lpf (None-Few); Squamous Epithelial Cell,Urine Many per lpf (None-Few)
[2019-05-31 11:18] LABS: Amphetamine Screen,Urine Negative ng/mL (Cutoff=1000); Barbiturate Screen,Urine Negative ng/mL (Cutoff=200); Benzodiazepines Screen,Urine Negative ng/mL (Cutoff=200); Cannabinoid Screen,Urine Negative ng/mL (Cutoff = 50); Cocaine Screen,Urine Negative ng/mL (Cutoff= 300); Opiate Screen,Urine Negative ng/mL (Cutoff=300); Phencyclidine Screen,Urine Negative ng/mL (Cutoff=25)
[2019-05-31] MEDS ORDERED: WATER FOR INJ IVPB ONE (11:33)
[2019-05-31] MEDS ORDERED: [UNRECOGNIZED DRUG - OTHER] IVPB ONE (11:33)
[2019-05-31] MEDS ORDERED: HUM PROTHROMBIN CPLX IVPB ONE (11:33)
[2019-05-31 12:00] LABS: Albumin 3.1 g/dL (3.5-5.7); Albumin/Globulin Ratio 0.9 (1.1-2.2); Bilirubin,Direct 0.3 mg/dL (0.0-0.2); Bilirubin,Indirect 0.5 mg/dL (0.0-1.0); Bilirubin,Total 0.8 mg/dL (0.3-1.0); Globulin 3.6 g/dL (2.4-3.5); Total Protein 6.7 g/dL (6.4-8.9)
[2019-05-31] MEDS ORDERED: Piperacillin/Tazobactam 3.375 GM in 0.9 % Sodium Chloride Mini Bag 100 ML IVPB ONE (12:21)
[2019-05-31] MEDS ORDERED: Naloxone 0.4 MG/ML INJ IVP PRN (12:57)
[2019-05-31] MEDS ORDERED: Nitroglycerin 0.4 MG TAB.SUBL SL PRN (15:47)
[2019-05-31] MEDS ORDERED: Dextrose Gel 15 GM/37.5 ML TUBE PO PRN ×2 (15:51)
[2019-05-31] MEDS ORDERED: D5% in Water 1,000 ML IVC PRN (15:51)
[2019-05-31 15:55] LABS: Hematocrit 22.7 % (37.5-50.1); Hemoglobin 7.8 g/dL (12.9-16.9)
[2019-05-31] MEDS: Insulin LISPRO 300 UNITS/3 ML VIAL SQ SCH (17:47)
[2019-05-31] MEDS: Cyanocobalamin (B-12) 1,000 MCG/ML VIAL IM SCH (18:22)
[2019-05-31] MEDS ORDERED: Lisinopril 20 MG TABLET PO SCH (21:00)
[2019-05-31] MEDS ORDERED: 0.9 % Sodium Chloride 250 ML ONE (22:34)
[2019-06-01] MEDS ORDERED: Acetaminophen IV 1,000 MG/100 ML INFUS..BTL IVPB ONE (00:04)
[2019-06-01] MEDS ORDERED: tiZANidine 4 MG TABLET PO ONE (00:04)
[2019-06-01 04:04] LABS: Basophils % 0.3 %; Eosinophils # 0.1 K/mcL (0.0-0.6); Eosinophils % 1.7 %; Hematocrit 21.3 % (37.5-50.1); Hemoglobin 7.1 g/dL (12.9-16.9); Immature Granulocytes % 0.5 % (0-4); Lymphocytes # 0.7 K/mcL (0.6-4.6); Lymphocytes % 10.7 %; Mean Corpuscular HGB Conc 33.3 g/dL (31.6-35.5); Mean Corpuscular Volume 95.9 fL (83.0-100.0); Mean Platelet Volume 8.9 fL (9.4-12.4); Monocytes # 0.6 K/mcL (0.0-1.3); Monocytes % 8.4 %; Neutrophils # 5.1 K/mcL (1.6-8.9); Platelet Count 116 K/mcL (140-400); Red Blood Count 2.22 M/mcL (4.19-5.50); Red Cell Distribution Width 14.8 % (11.5-14.5); Segmented Neutrophils % 78.4 %; White Blood Count 6.5 K/mcL (4.3-11.1)
[2019-06-01 04:09] LABS: INR 1.1; Prothrombin Time 12.4 Seconds (9.4-12.1)
[2019-06-01] MEDS ORDERED: 0.9 % Sodium Chloride 500 ML IV ONE (08:01)
[2019-06-01] MEDS ORDERED: 0.9 % Sodium Chloride 500 ML ONE (08:03)
[2019-06-01 08:41] LABS: Troponin I 0.15 ng/mL (< 0.04)
[2019-06-01] MEDS ORDERED: Furosemide 40 MG TABLET PO SCH (09:00)
[2019-06-01] MEDS ORDERED: Metoprolol XL (24 HR) Succ 50 MG TAB.ER.24H PO SCH (09:00)
[2019-06-01] MEDS ORDERED: Insulin DETEMIR 100 UNIT/ML X5UNITS SQ SCH (09:00)
[2019-06-01] MEDS: Pantoprazole 40 MG VIAL IVP SCH ×2 (09:02→16:55)
[2019-06-01] MEDS: Insulin LISPRO 300 UNITS/3 ML VIAL SQ SCH ×3 (09:03→18:09)
[2019-06-01] MEDS ORDERED: 0.9 % Sodium Chloride 250 ML ONE ×2 (09:37→13:40)
[2019-06-01] MEDS ORDERED: Piperacillin/Tazobactam 3.375 GM in 0.9 % Sodium Chloride Mini Bag 100 ML IVPB SCH (10:00)
[2019-06-01] MEDS ORDERED: 0.9 % Sodium Chloride 1,000 ML IVC SCH (12:45)
[2019-06-01] MEDS: Loratadine 10 MG TABLET PO SCH (14:52)
[2019-06-01] MEDS ORDERED: Perflutren Lipid Microsphere 1.3 ML in 0.9 % Sodium Chloride 8.7 ML IVP ONE ×2 (15:19→22:58)
[2019-06-01] MEDS: Piperacillin/Tazobactam 3.375 GM in 0.9 % Sodium Chloride Mini Bag 100 ML IVPB SCH (16:05)
[2019-06-01] MEDS: Cyanocobalamin (B-12) 1,000 MCG/ML VIAL IM SCH (16:43)
[2019-06-01] MEDS ORDERED: SODIUM CHLORIDE/NAHCO3/KCL/PEG 4,000 ML SOLN.RECON PO ONE (17:00)
[2019-06-01 18:24] LABS: Hematocrit 29.1 % (37.5-50.1)
[2019-06-01 18:25] LABS: Hemoglobin 9.9 g/dL (12.9-16.9)
[2019-06-01] MEDS: Ipratropium/Albuterol Neb 3 ML IH SCH ×2 (20:55→23:49)
[2019-06-02] MEDS: Piperacillin/Tazobactam 3.375 GM in 0.9 % Sodium Chloride Mini Bag 100 ML IVPB SCH ×2 (03:57→15:43)
[2019-06-02 04:01] LABS: Basophils % 0.4 %; Eosinophils # 0.1 K/mcL (0.0-0.6); Eosinophils % 1.2 %; Hematocrit 26.7 % (37.5-50.1); Hemoglobin 9.3 g/dL (12.9-16.9); Immature Granulocytes % 0.5 % (0-4); Lymphocytes # 0.7 K/mcL (0.6-4.6); Lymphocytes % 7.9 %; Mean Corpuscular HGB Conc 34.8 g/dL (31.6-35.5); Mean Corpuscular Volume 91.8 fL (83.0-100.0); Mean Platelet Volume 8.8 fL (9.4-12.4); Monocytes # 0.7 K/mcL (0.0-1.3); Monocytes % 8.4 %; Neutrophils # 6.8 K/mcL (1.6-8.9); Platelet Count 117 K/mcL (140-400); Red Blood Count 2.91 M/mcL (4.19-5.50); Red Cell Distribution Width 15.9 % (11.5-14.5); Segmented Neutrophils % 81.6 %; White Blood Count 8.3 K/mcL (4.3-11.1)
[2019-06-02 04:02] LABS: INR 1.2; Prothrombin Time 14.1 Seconds (9.4-12.1)
[2019-06-02 04:18] LABS: Potassium 4.2 mEq/L (3.5-5.1)
[2019-06-02] MEDS: Ipratropium/Albuterol Neb 3 ML IH SCH ×6 (05:09→23:41)
[2019-06-02] MEDS: Pantoprazole 40 MG VIAL IVP SCH ×2 (06:14→17:35)
[2019-06-02] MEDS: Insulin LISPRO 300 UNITS/3 ML VIAL SQ SCH ×3 (07:47→17:38)
[2019-06-02] MEDS ORDERED: Insulin DETEMIR 100 UNIT/ML X5UNITS SQ ONE (07:53)
[2019-06-02] MEDS: Insulin DETEMIR 100 UNIT/ML X5UNITS SQ SCH (07:54)
[2019-06-02] MEDS: Loratadine 10 MG TABLET PO SCH (08:13)
[2019-06-02 12:46] LABS: Hematocrit 27.7 % (37.5-50.1); Hemoglobin 9.2 g/dL (12.9-16.9)
[2019-06-02] MEDS ORDERED: Acetaminophen 325 MG TABLET PO PRN (14:27)
[2019-06-02] MEDS ORDERED: *HR* OxyCODONE Immed Rel 5 MG TABLET PO PRN (14:27)
[2019-06-02] MEDS: *HR* HYDROcodone/Acet 5/325 mg TABLET PO PRN (15:54)
[2019-06-02] MEDS: Cyanocobalamin (B-12) 1,000 MCG/ML VIAL IM SCH (17:35)
[2019-06-03] MEDS: Piperacillin/Tazobactam 3.375 GM in 0.9 % Sodium Chloride Mini Bag 100 ML IVPB SCH ×3 (03:28→20:15)
[2019-06-03] MEDS: Ipratropium/Albuterol Neb 3 ML IH SCH ×5 (04:10→20:15)
[2019-06-03 05:27] LABS: Lymphocytes % 6.4 %; Red Cell Distribution Width 15.9 % (11.5-14.5)
[2019-06-03 05:29] LABS: Basophils % 0.3 %; Eosinophils # 0.1 K/mcL (0.0-0.6); Hematocrit 26.7 % (37.5-50.1); Immature Granulocytes % 0.7 % (0-4); Immature Platelets 1.3 % (1.1-6.1); Lymphocytes # 0.5 K/mcL (0.6-4.6); Mean Corpuscular HGB Conc 33.7 g/dL (31.6-35.5); Mean Corpuscular Hemoglobin 31.5 pg (28.0-33.3); Mean Corpuscular Volume 93.4 fL (83.0-100.0); Mean Platelet Volume 8.5 fL (9.4-12.4); Monocytes # 0.6 K/mcL (0.0-1.3); Monocytes % 8.4 %; Platelet Count 104 K/mcL (140-400); Red Blood Count 2.86 M/mcL (4.19-5.50); Segmented Neutrophils % 83.2 %
[2019-06-03 05:40] LABS: Neutrophils # 5.8 K/mcL (1.6-8.9)
[2019-06-03 05:41] LABS: Potassium 4.3 mEq/L (3.5-5.1)
[2019-06-03] MEDS: Pantoprazole 40 MG VIAL IVP SCH ×2 (06:57→18:07)
[2019-06-03] MEDS ORDERED: Lidocaine -MPF 2% 2 ML VIAL ONE (07:09)
[2019-06-03] MEDS ORDERED: Furosemide 20 MG/2 ML VIAL IVP ONE (07:43)
[2019-06-03] MEDS ORDERED: Metoprolol XL (24 HR) Succ 50 MG TAB.ER.24H PO SCH (09:00)
[2019-06-03] MEDS: Metoprolol XL (24 HR) Succ 50 MG TAB.ER.24H PO SCH (10:02)
[2019-06-03] MEDS: Loratadine 10 MG TABLET PO SCH (10:02)
[2019-06-03] MEDS: Insulin LISPRO 300 UNITS/3 ML VIAL SQ SCH ×3 (10:04→17:13)
[2019-06-03] MEDS: Insulin DETEMIR 100 UNIT/ML X5UNITS SQ SCH (10:04)
[2019-06-03] MEDS ORDERED: *HR* Propofol 200 MG/20 ML VIAL IVP ONE (12:55)
[2019-06-03 15:04] LABS: Hematocrit 26.6 % (37.5-50.1); Hemoglobin 8.7 g/dL (12.9-16.9)
[2019-06-03] MEDS: Cyanocobalamin (B-12) 1,000 MCG/ML VIAL IM SCH (18:06)
[2019-06-03 21:13] LABS: Hematocrit 26.3 % (37.5-50.1)
[2019-06-04] MEDS: Ipratropium/Albuterol Neb 3 ML IH SCH ×7 (00:28→23:01)
[2019-06-04] MEDS: Piperacillin/Tazobactam 3.375 GM in 0.9 % Sodium Chloride Mini Bag 100 ML IVPB SCH ×3 (04:29→21:17)
[2019-06-04 04:54] LABS: Basophils % 0.4 %; Eosinophils # 0.2 K/mcL (0.0-0.6); Eosinophils % 2.2 %; Hemoglobin 8.8 g/dL (12.9-16.9); Immature Granulocytes % 0.4 % (0-4); Lymphocytes # 0.5 K/mcL (0.6-4.6); Lymphocytes % 6.7 %; Mean Corpuscular HGB Conc 32.6 g/dL (31.6-35.5); Mean Corpuscular Hemoglobin 31.7 pg (28.0-33.3); Mean Corpuscular Volume 97.1 fL (83.0-100.0); Mean Platelet Volume 8.7 fL (9.4-12.4); Monocytes # 0.6 K/mcL (0.0-1.3); Monocytes % 7.6 %; Neutrophils # 6.3 K/mcL (1.6-8.9); Platelet Count 106 K/mcL (140-400); Red Blood Count 2.78 M/mcL (4.19-5.50); Red Cell Distribution Width 16.1 % (11.5-14.5); Segmented Neutrophils % 82.7 %; White Blood Count 7.6 K/mcL (4.3-11.1)
[2019-06-04 05:05] LABS: Calcium 8.3 mg/dL (8.6-10.3); Potassium 4.1 mEq/L (3.5-5.1)
[2019-06-04] MEDS: Pantoprazole 40 MG VIAL IVP SCH (06:15)
[2019-06-04] MEDS ORDERED: Furosemide 40 MG/4 ML VIAL IVP ONE (07:38)
[2019-06-04] MEDS: Insulin LISPRO 300 UNITS/3 ML VIAL SQ SCH ×3 (08:37→16:51)
[2019-06-04] MEDS: Insulin DETEMIR 100 UNIT/ML X5UNITS SQ SCH (08:43)
[2019-06-04] MEDS: Loratadine 10 MG TABLET PO SCH (08:43)
[2019-06-04] MEDS: Metoprolol XL (24 HR) Succ 50 MG TAB.ER.24H PO SCH (08:43)
[2019-06-04 12:55] LABS: Adenovirus Not Detected (Not Detect); Bordetella Pertussis Not Detected (Not Detect); Chlamydophila pneumoniae Not Detected (Not Detect); Coronavirus 229E Not Detected (Not Detect); Coronavirus HKU1 Not Detected (Not Detect); Coronavirus NL63 Not Detected (Not Detect); Coronavirus OC43 Not Detected (Not Detect); Human Metapneumovirus Not Detected (Not Detect); Human Rhinovirus/Enterovirus Not Detected (Not Detect); Influenza A Subtype 2009 H1 Not Detected (Not Detect); Influenza B Not Detected (Not Detect); Mycoplasma pneumoniae Not Detected (Not Detect); Parainfluenza Virus 1 Not Detected (Not Detect); Parainfluenza Virus 2 Not Detected (Not Detect); Parainfluenza Virus 3 Not Detected (Not Detect); Parainfluenza Virus 4 Not Detected (Not Detect); Respiratory Syncytial Virus Not Detected (Not Detect)
[2019-06-04] MEDS: Cyanocobalamin (B-12) 1,000 MCG/ML VIAL IM SCH (16:50)
[2019-06-05 02:39] LABS: Basophils % 0.3 %; Eosinophils # 0.2 K/mcL (0.0-0.6); Eosinophils % 2.9 %; Hematocrit 25.9 % (37.5-50.1); Hemoglobin 8.7 g/dL (12.9-16.9); Immature Granulocytes % 0.3 % (0-4); Lymphocytes # 0.5 K/mcL (0.6-4.6); Lymphocytes % 7.5 %; Mean Corpuscular HGB Conc 33.6 g/dL (31.6-35.5); Mean Corpuscular Volume 95.2 fL (83.0-100.0); Monocytes # 0.4 K/mcL (0.0-1.3); Monocytes % 6.3 %; Neutrophils # 5.1 K/mcL (1.6-8.9); Platelet Count 98 K/mcL (140-400); Red Blood Count 2.72 M/mcL (4.19-5.50); Segmented Neutrophils % 82.7 %; White Blood Count 6.2 K/mcL (4.3-11.1)
[2019-06-05] MEDS: Piperacillin/Tazobactam 3.375 GM in 0.9 % Sodium Chloride Mini Bag 100 ML IVPB SCH ×3 (02:53→22:04)
[2019-06-05 02:59] LABS: Calcium 8.1 mg/dL (8.6-10.3); Potassium 3.7 mEq/L (3.5-5.1)
[2019-06-05] MEDS: Ipratropium/Albuterol Neb 3 ML IH SCH ×6 (04:47→23:20)
[2019-06-05] MEDS: Insulin LISPRO 300 UNITS/3 ML VIAL SQ SCH ×3 (07:46→16:39)
[2019-06-05] MEDS ORDERED: Furosemide 40 MG/4 ML VIAL IVP ONE (07:47)
[2019-06-05] MEDS: Insulin DETEMIR 100 UNIT/ML X5UNITS SQ SCH (09:30)
[2019-06-05] MEDS: Loratadine 10 MG TABLET PO SCH (09:43)
[2019-06-05] MEDS: Aspirin Enteric Coated 81 MG Tablet PO SCH (09:43)
[2019-06-05] MEDS: Metoprolol XL (24 HR) Succ 50 MG TAB.ER.24H PO SCH (09:43)
[2019-06-05] MEDS: Cyanocobalamin (B-12) 1,000 MCG/ML VIAL IM SCH (16:29)
[2019-06-06 01:10] LABS: Mean Corpuscular Volume 97.4 fL (83.0-100.0); Red Cell Distribution Width 15.9 % (11.5-14.5)
[2019-06-06 01:11] LABS: Hematocrit 25.9 % (37.5-50.1); Hemoglobin 8.4 g/dL (12.9-16.9); Immature Platelets 1.2 % (1.1-6.1); Mean Corpuscular HGB Conc 32.4 g/dL (31.6-35.5); Mean Corpuscular Hemoglobin 31.6 pg (28.0-33.3); Mean Platelet Volume 8.9 fL (9.4-12.4); Red Blood Count 2.66 M/mcL (4.19-5.50)
[2019-06-06 01:26] LABS: Calcium 8.2 mg/dL (8.6-10.3); Potassium 3.7 mEq/L (3.5-5.1)
[2019-06-06] MEDS: Ipratropium/Albuterol Neb 3 ML IH SCH ×6 (04:23→23:59)
[2019-06-06] MEDS: Piperacillin/Tazobactam 3.375 GM in 0.9 % Sodium Chloride Mini Bag 100 ML IVPB SCH ×3 (04:53→20:06)
[2019-06-06] MEDS: Loratadine 10 MG TABLET PO SCH (11:09)
[2019-06-06] MEDS: Metoprolol XL (24 HR) Succ 50 MG TAB.ER.24H PO SCH (11:09)
[2019-06-06] MEDS: Insulin LISPRO 300 UNITS/3 ML VIAL SQ SCH ×3 (11:09→16:06)
[2019-06-06] MEDS: Aspirin Enteric Coated 81 MG Tablet PO SCH (11:09)
[2019-06-06] MEDS: Insulin DETEMIR 100 UNIT/ML X5UNITS SQ SCH (11:10)
[2019-06-06] MEDS: Cyanocobalamin (B-12) 1,000 MCG/ML VIAL IM SCH (16:04)
[2019-06-06] MEDS: Doxycycline 100 MG in 0.9 % Sodium Chloride Mini Bag 100 ML IVPB SCH (16:04)
[2019-06-06] MEDS: MethylPREDNISolone 40 MG/ML VIAL IVP SCH ×3 (16:04→23:53)
[2019-06-07] MEDS: Ipratropium/Albuterol Neb 3 ML IH SCH ×6 (03:59→23:28)
[2019-06-07] MEDS: Piperacillin/Tazobactam 3.375 GM in 0.9 % Sodium Chloride Mini Bag 100 ML IVPB SCH ×3 (05:03→22:06)
[2019-06-07] MEDS: Doxycycline 100 MG in 0.9 % Sodium Chloride Mini Bag 100 ML IVPB SCH ×2 (05:04→18:23)
[2019-06-07 05:27] LABS: Mean Platelet Volume 9.2 fL (9.4-12.4)
[2019-06-07 05:29] LABS: Hematocrit 28.4 % (37.5-50.1); Hemoglobin 9.3 g/dL (12.9-16.9); Immature Granulocytes % 0.5 % (0-4); Immature Platelets 1.9 % (1.1-6.1); Lymphocytes # 0.2 K/mcL (0.6-4.6); Lymphocytes % 5.3 %; Mean Corpuscular HGB Conc 32.7 g/dL (31.6-35.5); Mean Corpuscular Hemoglobin 31.4 pg (28.0-33.3); Mean Corpuscular Volume 95.9 fL (83.0-100.0); Monocytes % 0.8 %; Neutrophils # 3.6 K/mcL (1.6-8.9); Platelet Count 101 K/mcL (140-400); Red Blood Count 2.96 M/mcL (4.19-5.50); Red Cell Distribution Width 15.5 % (11.5-14.5); Segmented Neutrophils % 93.4 %; White Blood Count 3.8 K/mcL (4.3-11.1)
[2019-06-07 05:48] LABS: INR 2.6; Prothrombin Time 29.9 Seconds (9.4-12.1)
[2019-06-07 07:20] LABS: Calcium 8.2 mg/dL (8.6-10.3); Magnesium 2.2 mg/dL (1.6-2.6); Potassium 4.5 mEq/L (3.5-5.1)
[2019-06-07] MEDS ORDERED: Lidocaine -MPF 4% 5 ML AMPUL ONE (07:29)
[2019-06-07] MEDS ORDERED: Lidocaine -MPF 2% 2 ML VIAL ONE (07:31)
[2019-06-07] MEDS ORDERED: *HR* Propofol 200 MG/20 ML VIAL IVP ONE (07:31)
[2019-06-07] MEDS ORDERED: *HR* FentaNYL (PF) 100 MCG/2 ML VIAL ONE (07:32)
[2019-06-07] MEDS ORDERED: Ondansetron 4 MG/2 ML VIAL ONE (07:32)
[2019-06-07] MEDS ORDERED: *HR* Rocuronium Bromide 50 MG/5 ML VIAL ONE (07:32)
[2019-06-07] MEDS ORDERED: *HR* Succinylcholine 200 MG/10 ML VIAL IVP ONE (07:32)
[2019-06-07] MEDS ORDERED: Dexamethasone 4 MG/ML VIAL ONE (07:32)
[2019-06-07] MEDS ORDERED: 0.9 % Sodium Chloride 500 ML IVC SCH (08:00)
[2019-06-07] MEDS ORDERED: *HR* PHENYLEPHRINE 1,000 MCG/10 ML SYRINGE IVP ONE (08:24)
[2019-06-07] MEDS: MethylPREDNISolone 40 MG/ML VIAL IVP SCH ×2 (09:00→18:23)
[2019-06-07] MEDS ORDERED: Insulin DETEMIR 100 UNIT/ML X5UNITS SQ SCH ×2 (09:00)
[2019-06-07] MEDS ORDERED: NiCARdipine 2.5 MG/10 ML Syringe IVPB ONE (11:14)
[2019-06-07] MEDS: Insulin LISPRO 300 UNITS/3 ML VIAL SQ SCH ×3 (12:12→18:24)
[2019-06-07] MEDS: Aspirin Enteric Coated 81 MG Tablet PO SCH (12:21)
[2019-06-07] MEDS: Metoprolol XL (24 HR) Succ 50 MG TAB.ER.24H PO SCH (12:22)
[2019-06-07] MEDS: Loratadine 10 MG TABLET PO SCH (12:23)
[2019-06-07 14:13] LABS: Appearance of Body Fluid Cloudy (Clear); Volume of Body Fluid 22 mL; Volume of Body Fluid 25 mL
[2019-06-07] MEDS: Cyanocobalamin (B-12) 1,000 MCG/ML VIAL IM SCH (18:10)
[2019-06-08] MEDS: MethylPREDNISolone 40 MG/ML VIAL IVP SCH ×3 (00:27→17:22)
[2019-06-08] MEDS: Ipratropium/Albuterol Neb 3 ML IH SCH ×6 (03:51→23:00)
[2019-06-08] MEDS: Doxycycline 100 MG in 0.9 % Sodium Chloride Mini Bag 100 ML IVPB SCH ×2 (05:24→17:22)
[2019-06-08] MEDS: Piperacillin/Tazobactam 3.375 GM in 0.9 % Sodium Chloride Mini Bag 100 ML IVPB SCH ×3 (05:24→20:10)
[2019-06-08 05:45] LABS: Basophils % 0.1 %; Hematocrit 27.6 % (37.5-50.1); Hemoglobin 9.3 g/dL (12.9-16.9); Immature Granulocytes % 0.7 % (0-4); Lymphocytes # 0.1 K/mcL (0.6-4.6); Lymphocytes % 1.6 %; Mean Corpuscular HGB Conc 33.7 g/dL (31.6-35.5); Mean Corpuscular Hemoglobin 32.1 pg (28.0-33.3); Mean Corpuscular Volume 95.2 fL (83.0-100.0); Mean Platelet Volume 9.2 fL (9.4-12.4); Monocytes # 0.1 K/mcL (0.0-1.3); Monocytes % 1.1 %; Platelet Count 105 K/mcL (140-400); Red Cell Distribution Width 15.6 % (11.5-14.5); Segmented Neutrophils % 96.5 %
[2019-06-08 05:52] LABS: Neutrophils # 7.3 K/mcL (1.6-8.9); White Blood Count 7.6 K/mcL (4.3-11.1)
[2019-06-08 05:54] LABS: INR 2.3; Prothrombin Time 25.9 Seconds (9.4-12.1)
[2019-06-08 06:06] LABS: Platelet Estimate Decreased (Normal)
[2019-06-08 06:07] LABS: Calcium 8.5 mg/dL (8.6-10.3); Potassium 4.1 mEq/L (3.5-5.1)
[2019-06-08] MEDS ORDERED: Insulin DETEMIR 100 UNIT/ML X5UNITS SQ SCH (09:00)
[2019-06-08] MEDS: Insulin LISPRO 300 UNITS/3 ML VIAL SQ SCH ×6 (09:23→17:22)
[2019-06-08] MEDS: Aspirin Enteric Coated 81 MG Tablet PO SCH (09:24)
[2019-06-08] MEDS: *HR* HYDROcodone/Acet 5/325 mg TABLET PO PRN (09:24)
[2019-06-08] MEDS: Metoprolol XL (24 HR) Succ 50 MG TAB.ER.24H PO SCH (09:25)
[2019-06-08] MEDS: Loratadine 10 MG TABLET PO SCH (09:25)
[2019-06-08] MEDS: Cyanocobalamin (B-12) 1,000 MCG/ML VIAL IM SCH (17:11)
[2019-06-09] MEDS: MethylPREDNISolone 40 MG/ML VIAL IVP SCH ×4 (00:23→23:58)
[2019-06-09] MEDS: Ipratropium/Albuterol Neb 3 ML IH SCH ×5 (04:05→19:37)
[2019-06-09 05:23] LABS: Hematocrit 29.3 % (37.5-50.1); Hemoglobin 9.7 g/dL (12.9-16.9); Mean Corpuscular HGB Conc 33.1 g/dL (31.6-35.5); Mean Corpuscular Hemoglobin 31.5 pg (28.0-33.3); Mean Corpuscular Volume 95.1 fL (83.0-100.0); Mean Platelet Volume 9.6 fL (9.4-12.4); Platelet Count 115 K/mcL (140-400); Red Blood Count 3.08 M/mcL (4.19-5.50); Red Cell Distribution Width 15.6 % (11.5-14.5); White Blood Count 8.1 K/mcL (4.3-11.1)
[2019-06-09 05:42] LABS: INR 2.7; Prothrombin Time 30.2 Seconds (9.4-12.1)
[2019-06-09 05:43] LABS: Calcium 8.4 mg/dL (8.6-10.3)
[2019-06-09] MEDS: Piperacillin/Tazobactam 3.375 GM in 0.9 % Sodium Chloride Mini Bag 100 ML IVPB SCH ×3 (05:46→20:58)
[2019-06-09] MEDS: Doxycycline 100 MG in 0.9 % Sodium Chloride Mini Bag 100 ML IVPB SCH ×2 (05:46→17:44)
[2019-06-09] MEDS: Metoprolol XL (24 HR) Succ 50 MG TAB.ER.24H PO SCH (08:17)
[2019-06-09] MEDS: Loratadine 10 MG TABLET PO SCH (08:17)
[2019-06-09] MEDS: Aspirin Enteric Coated 81 MG Tablet PO SCH (08:17)
[2019-06-09] MEDS: Insulin LISPRO 300 UNITS/3 ML VIAL SQ SCH ×6 (08:18→17:43)
[2019-06-09] MEDS: Insulin DETEMIR 100 UNIT/ML X5UNITS SQ SCH (08:20)
[2019-06-09 09:11] LABS: Albumin 2.7 g/dL (3.5-5.7); Albumin/Globulin Ratio 0.7 (1.1-2.2); Bilirubin,Direct 0.3 mg/dL (0.0-0.2); Bilirubin,Indirect 0.4 mg/dL (0.0-1.0); Bilirubin,Total 0.7 mg/dL (0.3-1.0); Globulin 3.9 g/dL (2.4-3.5); Magnesium 2.4 mg/dL (1.6-2.6); Total Protein 6.6 g/dL (6.4-8.9)
[2019-06-09 09:19] LABS: Troponin I 0.04 ng/mL (< 0.04)
[2019-06-09] MEDS: *HR* HYDROcodone/Acet 5/325 mg TABLET PO PRN ×2 (11:56→23:58)
[2019-06-09] MEDS: Cyanocobalamin (B-12) 1,000 MCG/ML VIAL IM SCH (15:52)
[2019-06-09 19:41] LABS: HSV Source BAL LUL
[2019-06-09] MEDS: *HR* Dextrose 50 % in Water (Syg) 50 ML SYRINGE IVP PRN (22:02)
[2019-06-09 22:29] LABS: Influenza A PCR Body Fluid NOT DETECTED; Influenza B PCR Body Fluid NOT DETECTED; RVP Body Fluid Source BAL
[2019-06-10] MEDS: Ipratropium/Albuterol Neb 3 ML IH SCH ×7 (00:10→23:28)
[2019-06-10] MEDS: Doxycycline 100 MG in 0.9 % Sodium Chloride Mini Bag 100 ML IVPB SCH (05:09)
[2019-06-10] MEDS: Piperacillin/Tazobactam 3.375 GM in 0.9 % Sodium Chloride Mini Bag 100 ML IVPB SCH (05:09)
[2019-06-10 05:52] LABS: INR 3.1; Prothrombin Time 34.8 Seconds (9.4-12.1)
[2019-06-10 06:02] LABS: Basophils % 0.1 %; Hematocrit 29.1 % (37.5-50.1); Hemoglobin 9.3 g/dL (12.9-16.9); Immature Granulocytes % 0.8 % (0-4); Lymphocytes # 0.2 K/mcL (0.6-4.6); Lymphocytes % 1.8 %; Mean Corpuscular Hemoglobin 31.8 pg (28.0-33.3); Mean Corpuscular Volume 99.7 fL (83.0-100.0); Mean Platelet Volume 9.5 fL (9.4-12.4); Monocytes # 0.1 K/mcL (0.0-1.3); Monocytes % 1.3 %; Platelet Count 108 K/mcL (140-400); Red Blood Count 2.92 M/mcL (4.19-5.50); Red Cell Distribution Width 15.8 % (11.5-14.5); White Blood Count 8.9 K/mcL (4.3-11.1)
[2019-06-10 06:07] LABS: Calcium 8.5 mg/dL (8.6-10.3); Potassium 4.5 mEq/L (3.5-5.1)
[2019-06-10 06:11] LABS: Neutrophils # 8.5 K/mcL (1.6-8.9)
[2019-06-10 06:58] LABS: Platelet Estimate Slight Decrease (Normal)
[2019-06-10] MEDS: Insulin DETEMIR 100 UNIT/ML X5UNITS SQ SCH (08:49)
[2019-06-10] MEDS: Insulin LISPRO 300 UNITS/3 ML VIAL SQ SCH ×6 (08:50→16:19)
[2019-06-10] MEDS: Metoprolol XL (24 HR) Succ 50 MG TAB.ER.24H PO SCH (08:53)
[2019-06-10] MEDS: Loratadine 10 MG TABLET PO SCH (08:53)
[2019-06-10] MEDS: Aspirin Enteric Coated 81 MG Tablet PO SCH (08:53)
[2019-06-10] MEDS ORDERED: predniSONE 20 MG TABLET PO SCH (09:00)
[2019-06-10 10:27] LABS: ANA IgG by ELISA NONE DETECTED (None Detected); Serine Protease-3 Antibody 9 AU/mL (0-19)
[2019-06-10 10:32] LABS: RSV PCR Body Fluid NOT DETECTED
[2019-06-10] MEDS ORDERED: Furosemide 40 MG/4 ML VIAL IVP ONE ×2 (12:33→17:58)
[2019-06-10] MEDS ORDERED: *HR* Phytonadione 5 MG TABLET PO ONE (12:45)
[2019-06-10] MEDS: Cyanocobalamin (B-12) 1,000 MCG TABLET PO SCH (14:09)
[2019-06-10] MEDS: Acetylcysteine 10% 2 ML INHSOL IH SCH ×2 (15:36→20:07)
[2019-06-10] MEDS: *HR* Dextrose 50 % in Water (Syg) 50 ML SYRINGE IVP PRN ×2 (16:40→17:31)
[2019-06-10 17:25] LABS: HSV Source BAL LLL
[2019-06-10 18:01] LABS: Influenza A PCR Body Fluid NOT DETECTED; Influenza B PCR Body Fluid NOT DETECTED; RVP Body Fluid Source BAL
[2019-06-10] MEDS: MethylPREDNISolone 40 MG/ML VIAL IVP SCH (19:19)
[2019-06-11] MEDS: MethylPREDNISolone 40 MG/ML VIAL IVP SCH ×4 (01:15→23:31)
[2019-06-11] MEDS: Acetylcysteine 10% 2 ML INHSOL IH SCH ×4 (03:50→19:50)
[2019-06-11] MEDS: Ipratropium/Albuterol Neb 3 ML IH SCH ×5 (03:50→19:50)
[2019-06-11 05:12] LABS: Hematocrit 28.5 % (37.5-50.1); Hemoglobin 9.6 g/dL (12.9-16.9); Mean Corpuscular HGB Conc 33.7 g/dL (31.6-35.5); Mean Corpuscular Hemoglobin 32.1 pg (28.0-33.3); Mean Corpuscular Volume 95.3 fL (83.0-100.0); Mean Platelet Volume 9.6 fL (9.4-12.4); Platelet Count 117 K/mcL (140-400); Red Blood Count 2.99 M/mcL (4.19-5.50); White Blood Count 8.9 K/mcL (4.3-11.1)
[2019-06-11 05:13] LABS: INR 1.6; Prothrombin Time 17.7 Seconds (9.4-12.1)
[2019-06-11 05:17] LABS: Bilirubin,Urine Negative (Negative); Blood,Urine Negative (Negative); Clarity,Urine Clear (Clear); Color,Urine Yellow (Yellow); Glucose,Urine (UA) Normal (Normal); Ketones,Urine Negative (Negative); Leukocyte Esterase,Urine Negative (Negative); Nitrite,Urine Negative (Negative); Protein,Urine Negative (Neg-Trace); Specific Gravity,Urine 1.013 (1.010-1.025); Urobilinogen,Urine Normal (Normal)
[2019-06-11 05:27] LABS: Calcium 8.4 mg/dL (8.6-10.3)
[2019-06-11 09:39] LABS: RSV PCR Body Fluid NOT DETECTED
[2019-06-11] MEDS ORDERED: *HR* LORazepam 2 MG/ML VIAL IVP ONE (09:51)
[2019-06-11] MEDS: Metoprolol XL (24 HR) Succ 50 MG TAB.ER.24H PO SCH (11:06)
[2019-06-11] MEDS: *HR* HYDROcodone/Acet 5/325 mg TABLET PO PRN (11:07)
[2019-06-11] MEDS: Aspirin Enteric Coated 81 MG Tablet PO SCH (11:07)
[2019-06-11] MEDS: Furosemide 40 MG/4 ML VIAL IVP SCH (11:08)
[2019-06-11] MEDS: Loratadine 10 MG TABLET PO SCH (11:08)
[2019-06-11] MEDS: Cyanocobalamin (B-12) 1,000 MCG TABLET PO SCH (11:08)
[2019-06-11] MEDS ORDERED: Furosemide 40 MG/4 ML VIAL IVP ONE (14:20)
[2019-06-11] MEDS: Insulin LISPRO 300 UNITS/3 ML VIAL SQ SCH ×2 (16:48→21:28)
[2019-06-11] MEDS: *HR* Heparin 5,000 UNIT/ML VIAL SQ SCH (19:03)
[2019-06-12] MEDS: Ipratropium/Albuterol Neb 3 ML IH SCH ×7 (00:01→23:39)
[2019-06-12] MEDS: Acetylcysteine 10% 2 ML INHSOL IH SCH ×4 (03:54→19:42)
[2019-06-12 04:44] LABS: Calcium 8.7 mg/dL (8.6-10.3); Potassium 4.6 mEq/L (3.5-5.1)
[2019-06-12] MEDS: *HR* Heparin 5,000 UNIT/ML VIAL SQ SCH ×2 (06:16→17:13)
[2019-06-12] MEDS ORDERED: *HR* LORazepam 0.5 MG TABLET PO PRN (10:30)
[2019-06-12] MEDS: Loratadine 10 MG TABLET PO SCH (11:06)
[2019-06-12] MEDS: Metoprolol XL (24 HR) Succ 50 MG TAB.ER.24H PO SCH (11:06)
[2019-06-12] MEDS: Cyanocobalamin (B-12) 1,000 MCG TABLET PO SCH (11:06)
[2019-06-12] MEDS: Furosemide 40 MG/4 ML VIAL IVP SCH (11:08)
[2019-06-12] MEDS: Aspirin Enteric Coated 81 MG Tablet PO SCH (11:08)
[2019-06-12] MEDS: MethylPREDNISolone 40 MG/ML VIAL IVP SCH ×4 (11:08→23:26)
[2019-06-12] MEDS: Insulin LISPRO 300 UNITS/3 ML VIAL SQ SCH ×3 (11:31→17:13)
[2019-06-12] MEDS: Insulin DETEMIR 100 UNIT/ML X5UNITS SQ SCH (11:32)
[2019-06-12] MEDS: Nystatin SUSP 5 ML UD.LIQ BC SCH ×3 (17:04→22:12)
[2019-06-12] MEDS: *HR* HYDROcodone/Acet 5/325 mg TABLET PO PRN (17:10)
[2019-06-13] MEDS: *HR* LORazepam 0.5 MG TABLET PO PRN ×2 (00:42→23:14)
[2019-06-13] MEDS: Ipratropium/Albuterol Neb 3 ML IH SCH ×6 (03:10→23:33)
[2019-06-13] MEDS: Acetylcysteine 10% 2 ML INHSOL IH SCH ×4 (03:10→19:45)
[2019-06-13 03:45] LABS: Hematocrit 26.7 % (37.5-50.1); Hemoglobin 8.7 g/dL (12.9-16.9); Mean Corpuscular HGB Conc 32.6 g/dL (31.6-35.5); Mean Corpuscular Hemoglobin 31.9 pg (28.0-33.3); Mean Corpuscular Volume 97.8 fL (83.0-100.0); Mean Platelet Volume 10.1 fL (9.4-12.4); Platelet Count 91 K/mcL (140-400); Red Blood Count 2.73 M/mcL (4.19-5.50); Red Cell Distribution Width 16.1 % (11.5-14.5)
[2019-06-13 04:05] LABS: Calcium 8.5 mg/dL (8.6-10.3); Potassium 4.8 mEq/L (3.5-5.1)
[2019-06-13] MEDS: *HR* Heparin 5,000 UNIT/ML VIAL SQ SCH ×2 (05:28→16:59)
[2019-06-13] MEDS: *HR* HYDROcodone/Acet 5/325 mg TABLET PO PRN (05:38)
[2019-06-13] MEDS ORDERED: Haloperidol Lactate 5 MG/ML VIAL IVP ONE ×2 (05:52→06:12)
[2019-06-13] MEDS ORDERED: *HR* Promethazine 25 MG/ML VIAL IVP ONE (06:01)
[2019-06-13 06:07] LABS: ABG Base Excess 0 mEq/L (-2 to 3); ABG HCO3 24 mEq/L (21-27); ABG Oxygen Saturation 92 % (95-98); ABG PCO2 37 mmHg (35-45); ABG PH 7.43 pH Units (7.32-7.45); ABG PO2 62 mmHg (85-104); ABG TCO2 26 mEq/L (20-26)
[2019-06-13] MEDS: Insulin LISPRO 300 UNITS/3 ML VIAL SQ SCH ×4 (08:20→17:16)
[2019-06-13] MEDS: Insulin DETEMIR 100 UNIT/ML X5UNITS SQ SCH (09:27)
[2019-06-13] MEDS: Metoprolol XL (24 HR) Succ 50 MG TAB.ER.24H PO SCH (09:30)
[2019-06-13] MEDS: Furosemide 40 MG/4 ML VIAL IVP SCH (09:30)
[2019-06-13] MEDS: Aspirin Enteric Coated 81 MG Tablet PO SCH (09:30)
[2019-06-13] MEDS: Loratadine 10 MG TABLET PO SCH (09:30)
[2019-06-13] MEDS: MethylPREDNISolone 40 MG/ML VIAL IVP SCH ×3 (09:30→23:11)
[2019-06-13] MEDS: Cyanocobalamin (B-12) 1,000 MCG TABLET PO SCH (09:30)
[2019-06-13] MEDS: Nystatin SUSP 5 ML UD.LIQ BC SCH ×4 (09:30→21:57)
[2019-06-14] MEDS: Ipratropium/Albuterol Neb 3 ML IH SCH ×5 (03:23→20:15)
[2019-06-14] MEDS: Acetylcysteine 10% 2 ML INHSOL IH SCH ×4 (03:23→20:15)
[2019-06-14] MEDS ORDERED: Insulin Human Regular 10 UNIT in 0.9 % Sodium Chloride 10 ML IV ONE (03:28)
[2019-06-14 04:08] LABS: Red Cell Distribution Width 16.1 % (11.5-14.5)
[2019-06-14 04:09] LABS: Hematocrit 26.5 % (37.5-50.1); Hemoglobin 8.9 g/dL (12.9-16.9); Immature Platelets 3.6 % (1.1-6.1); Mean Corpuscular HGB Conc 33.6 g/dL (31.6-35.5); Mean Corpuscular Hemoglobin 31.8 pg (28.0-33.3); Mean Corpuscular Volume 94.6 fL (83.0-100.0); Mean Platelet Volume 10.5 fL (9.4-12.4); Red Blood Count 2.8 M/mcL (4.19-5.50)
[2019-06-14 04:28] LABS: Potassium 5.1 mEq/L (3.5-5.1)
[2019-06-14] MEDS: *HR* Heparin 5,000 UNIT/ML VIAL SQ SCH ×2 (06:20→16:16)
[2019-06-14] MEDS: *HR* HYDROcodone/Acet 5/325 mg TABLET PO PRN (06:20)
[2019-06-14] MEDS: MethylPREDNISolone 40 MG/ML VIAL IVP SCH ×3 (08:16→23:00)
[2019-06-14] MEDS: Aspirin Enteric Coated 81 MG Tablet PO SCH (08:16)
[2019-06-14] MEDS: Furosemide 40 MG/4 ML VIAL IVP SCH (08:16)
[2019-06-14] MEDS: Cyanocobalamin (B-12) 1,000 MCG TABLET PO SCH (08:16)
[2019-06-14] MEDS: Loratadine 10 MG TABLET PO SCH (08:16)
[2019-06-14] MEDS: Insulin DETEMIR 100 UNIT/ML X5UNITS SQ SCH (08:17)
[2019-06-14] MEDS: Nystatin SUSP 5 ML UD.LIQ BC SCH ×4 (08:17→20:07)
[2019-06-14] MEDS: Metoprolol XL (24 HR) Succ 50 MG TAB.ER.24H PO SCH (08:17)
[2019-06-14] MEDS: Insulin LISPRO 300 UNITS/3 ML VIAL SQ SCH ×6 (08:18→20:05)
[2019-06-14] MEDS: *HR* LORazepam 0.5 MG TABLET PO PRN (12:13)
[2019-06-14] MEDS ORDERED: Insulin DETEMIR 100 UNIT/ML X5UNITS SQ SCH (21:00)
[2019-06-15] MEDS: Ipratropium/Albuterol Neb 3 ML IH SCH ×7 (00:14→23:37)
[2019-06-15] MEDS: Acetylcysteine 10% 2 ML INHSOL IH SCH ×4 (03:57→20:21)
[2019-06-15] MEDS: *HR* Heparin 5,000 UNIT/ML VIAL SQ SCH ×2 (06:35→16:11)
[2019-06-15] MEDS: Nystatin SUSP 5 ML UD.LIQ BC SCH ×4 (07:36→23:07)
[2019-06-15] MEDS: Furosemide 40 MG/4 ML VIAL IVP SCH (07:37)
[2019-06-15] MEDS: Metoprolol XL (24 HR) Succ 50 MG TAB.ER.24H PO SCH (07:37)
[2019-06-15] MEDS: Loratadine 10 MG TABLET PO SCH (07:37)
[2019-06-15] MEDS: Aspirin Enteric Coated 81 MG Tablet PO SCH (07:37)
[2019-06-15] MEDS: Cyanocobalamin (B-12) 1,000 MCG TABLET PO SCH (07:37)
[2019-06-15] MEDS: MethylPREDNISolone 40 MG/ML VIAL IVP SCH ×3 (07:37→23:07)
[2019-06-15] MEDS: Insulin LISPRO 300 UNITS/3 ML VIAL SQ SCH ×7 (07:39→23:07)
[2019-06-15] MEDS: Insulin DETEMIR 100 UNIT/ML X5UNITS SQ SCH (07:40)
[2019-06-16] MEDS: Ipratropium/Albuterol Neb 3 ML IH SCH ×5 (03:53→19:36)
[2019-06-16] MEDS: Acetylcysteine 10% 2 ML INHSOL IH SCH ×4 (03:53→19:36)
[2019-06-16] MEDS: *HR* Heparin 5,000 UNIT/ML VIAL SQ SCH ×2 (05:26→17:44)
[2019-06-16 06:17] LABS: Calcium 8.3 mg/dL (8.6-10.3); Potassium 4.9 mEq/L (3.5-5.1)
[2019-06-16] MEDS: *HR* HYDROcodone/Acet 5/325 mg TABLET PO PRN ×2 (07:02→12:55)
[2019-06-16] MEDS: Nystatin SUSP 5 ML UD.LIQ BC SCH ×4 (08:32→20:39)
[2019-06-16] MEDS: Furosemide 40 MG/4 ML VIAL IVP SCH (08:32)
[2019-06-16] MEDS: Metoprolol XL (24 HR) Succ 50 MG TAB.ER.24H PO SCH (08:32)
[2019-06-16] MEDS: Loratadine 10 MG TABLET PO SCH (08:33)
[2019-06-16] MEDS: MethylPREDNISolone 40 MG/ML VIAL IVP SCH ×2 (08:34→16:49)
[2019-06-16] MEDS: Cyanocobalamin (B-12) 1,000 MCG TABLET PO SCH (08:34)
[2019-06-16] MEDS: Aspirin Enteric Coated 81 MG Tablet PO SCH (08:34)
[2019-06-16] MEDS: Insulin LISPRO 300 UNITS/3 ML VIAL SQ SCH ×6 (08:34→16:50)
[2019-06-16] MEDS: Insulin DETEMIR 100 UNIT/ML X5UNITS SQ SCH (08:37)
[2019-06-17] MEDS: Ipratropium/Albuterol Neb 3 ML IH SCH ×6 (00:04→19:40)
[2019-06-17] MEDS: MethylPREDNISolone 40 MG/ML VIAL IVP SCH ×2 (00:37→08:57)
[2019-06-17] MEDS: Insulin LISPRO 300 UNITS/3 ML VIAL SQ SCH ×8 (00:37→22:43)
[2019-06-17] MEDS: Acetylcysteine 10% 2 ML INHSOL IH SCH ×4 (03:22→19:40)
[2019-06-17] MEDS: *HR* Heparin 5,000 UNIT/ML VIAL SQ SCH ×2 (05:24→18:26)
[2019-06-17] MEDS: Docusate Oral Soln 100 MG/10 ML UDC PO SCH ×3 (05:24→22:42)
[2019-06-17] MEDS ORDERED: Isovue-370 500 ML BOTTLE IVP ONE (08:22)
[2019-06-17] MEDS: Aspirin Enteric Coated 81 MG Tablet PO SCH (08:54)
[2019-06-17] MEDS: Metoprolol XL (24 HR) Succ 50 MG TAB.ER.24H PO SCH (08:54)
[2019-06-17] MEDS: Cyanocobalamin (B-12) 1,000 MCG TABLET PO SCH (08:54)
[2019-06-17] MEDS: Loratadine 10 MG TABLET PO SCH (08:54)
[2019-06-17] MEDS: Nystatin SUSP 5 ML UD.LIQ BC SCH ×4 (08:57→22:41)
[2019-06-17] MEDS: Insulin DETEMIR 100 UNIT/ML X5UNITS SQ SCH (09:01)
[2019-06-17] MEDS: Acyclovir 400 MG in D5% in Water 100 ML IVPB SCH (13:53)
[2019-06-17 15:33] LABS: Nucleated Red Blood Cells 0.2 /100 WBC (0)
[2019-06-17 15:34] LABS: Hematocrit 27.2 % (37.5-50.1); Immature Platelets 3.7 % (1.1-6.1); Mean Corpuscular HGB Conc 33.1 g/dL (31.6-35.5); Mean Corpuscular Hemoglobin 31.8 pg (28.0-33.3); Mean Corpuscular Volume 96.1 fL (83.0-100.0); Mean Platelet Volume 10.4 fL (9.4-12.4); Red Blood Count 2.83 M/mcL (4.19-5.50); White Blood Count 10.5 K/mcL (4.3-11.1)
[2019-06-17 15:36] LABS: Platelet Count 79 K/mcL (140-400)
[2019-06-17 15:51] LABS: BUN/Creatinine Ratio 60 (6-26); Blood Urea Nitrogen 81 mg/dL (8-23); Calcium 7.7 mg/dL (8.6-10.3); Carbon Dioxide 26 mEq/L (23-29); Chloride 104 mEq/L (98-107); Glucose 256 mg/dL (70-105); Osmolality,Calculated 311 (280-300); Potassium 4.7 mEq/L (3.5-5.1); Sodium 134 mEq/L (136-145); eGFR For African Americans > 60 (> 60); eGFR For Non-African Americans 51 (> 60)
[2019-06-17 17:36] LABS: Monocytes # 0.2 K/mcL (0.0-1.3); Neutrophils # 10.3 K/mcL (1.6-8.9)
[2019-06-17 17:37] LABS: Platelet Estimate Decreased (Normal)
[2019-06-17] MEDS: Fluconazole 100 MG TABLET PO SCH (18:22)
[2019-06-17] MEDS: Lactulose Oral Soln 20 GM/30 ML UDC PO SCH ×2 (18:22→22:43)
[2019-06-17] MEDS ORDERED: methylPREDNISolone 125 MG/2 ML VIAL IVP SCH (21:00)
[2019-06-17] MEDS: methylPREDNISolone 125 MG/2 ML VIAL IVP SCH (22:41)
[2019-06-18] MEDS: Ipratropium/Albuterol Neb 3 ML IH SCH ×7 (00:10→23:30)
[2019-06-18] MEDS: Acyclovir 400 MG in D5% in Water 100 ML IVPB SCH ×2 (01:49→12:13)
[2019-06-18] MEDS: Acetylcysteine 10% 2 ML INHSOL IH SCH ×4 (03:59→19:35)
[2019-06-18] MEDS: *HR* Heparin 5,000 UNIT/ML VIAL SQ SCH ×2 (06:44→17:07)
[2019-06-18 09:02] LABS: BUN/Creatinine Ratio 56 (6-26); Blood Urea Nitrogen 74 mg/dL (8-23); Calcium 8.1 mg/dL (8.6-10.3); Carbon Dioxide 27 mEq/L (23-29); Chloride 104 mEq/L (98-107); Glucose 99 mg/dL (70-105); Osmolality,Calculated 308 (280-300); Potassium 4.9 mEq/L (3.5-5.1); Sodium 138 mEq/L (136-145); eGFR For African Americans > 60 (> 60); eGFR For Non-African Americans 52 (> 60)
[2019-06-18] MEDS: Loratadine 10 MG TABLET PO SCH (09:06)
[2019-06-18] MEDS: Metoprolol XL (24 HR) Succ 50 MG TAB.ER.24H PO SCH (09:06)
[2019-06-18] MEDS: Fluconazole 100 MG TABLET PO SCH (09:06)
[2019-06-18] MEDS: Aspirin Enteric Coated 81 MG Tablet PO SCH (09:06)
[2019-06-18] MEDS: Cyanocobalamin (B-12) 1,000 MCG TABLET PO SCH (09:07)
[2019-06-18] MEDS: methylPREDNISolone 125 MG/2 ML VIAL IVP SCH ×2 (09:07→22:29)
[2019-06-18] MEDS: Furosemide 40 MG/4 ML VIAL IVP SCH (09:08)
[2019-06-18] MEDS: Docusate Oral Soln 100 MG/10 ML UDC PO SCH ×2 (09:09→22:28)
[2019-06-18] MEDS: Insulin LISPRO 300 UNITS/3 ML VIAL SQ SCH ×7 (09:09→22:28)
[2019-06-18] MEDS: Insulin DETEMIR 100 UNIT/ML X5UNITS SQ SCH (09:09)
[2019-06-18] MEDS: Lactulose Oral Soln 20 GM/30 ML UDC PO SCH ×2 (09:09→22:28)
[2019-06-18] MEDS: Nystatin SUSP 5 ML UD.LIQ BC SCH ×4 (09:12→22:28)
[2019-06-18] MEDS: *HR* LORazepam 0.5 MG TABLET PO PRN (19:04)
[2019-06-19] MEDS: Acyclovir 400 MG in D5% in Water 100 ML IVPB SCH ×2 (01:43→12:33)
[2019-06-19 02:17] LABS: A.galactomannan Ag Index 0.05
[2019-06-19] MEDS: Ipratropium/Albuterol Neb 3 ML IH SCH ×5 (03:50→20:40)
[2019-06-19] MEDS: Acetylcysteine 10% 2 ML INHSOL IH SCH ×4 (03:50→20:40)
[2019-06-19 04:39] LABS: ANA IgG by ELISA NONE DETECTED (None Detected)
[2019-06-19] MEDS: *HR* Heparin 5,000 UNIT/ML VIAL SQ SCH ×2 (05:42→16:59)
[2019-06-19] MEDS: Aspirin Enteric Coated 81 MG Tablet PO SCH (08:55)
[2019-06-19] MEDS: methylPREDNISolone 125 MG/2 ML VIAL IVP SCH ×2 (08:56→20:32)
[2019-06-19] MEDS: Insulin LISPRO 300 UNITS/3 ML VIAL SQ SCH ×5 (08:56→20:32)
[2019-06-19] MEDS: Docusate Oral Soln 100 MG/10 ML UDC PO SCH ×2 (08:56→20:35)
[2019-06-19] MEDS: Lactulose Oral Soln 20 GM/30 ML UDC PO SCH ×2 (08:56→20:35)
[2019-06-19] MEDS: Furosemide 40 MG/4 ML VIAL IVP SCH (08:56)
[2019-06-19] MEDS: Fluconazole 100 MG TABLET PO SCH (08:57)
[2019-06-19] MEDS: Loratadine 10 MG TABLET PO SCH (08:57)
[2019-06-19] MEDS: Nystatin SUSP 5 ML UD.LIQ BC SCH ×4 (08:58→20:35)
[2019-06-19] MEDS: Cyanocobalamin (B-12) 1,000 MCG TABLET PO SCH (09:06)
[2019-06-19] MEDS: Metoprolol XL (24 HR) Succ 50 MG TAB.ER.24H PO SCH (09:06)
[2019-06-19] MEDS: *HR* LORazepam 0.5 MG TABLET PO PRN (16:58)
[2019-06-19 17:40] LABS: Potassium 5.5 mEq/L (3.5-5.1)
[2019-06-20] MEDS: Ipratropium/Albuterol Neb 3 ML IH SCH ×4 (00:22→11:38)
[2019-06-20] MEDS: Acyclovir 400 MG in D5% in Water 100 ML IVPB SCH (01:21)
[2019-06-20] MEDS: Acetylcysteine 10% 2 ML INHSOL IH SCH ×2 (04:35→07:26)
[2019-06-20] MEDS: *HR* Heparin 5,000 UNIT/ML VIAL SQ SCH (05:44)
[2019-06-20 06:04] LABS: Potassium 5.4 mEq/L (3.5-5.1)
[2019-06-20 07:48] LABS: Serine Protease-3 Antibody 6 AU/mL (0-19)
[2019-06-20] MEDS ORDERED: Insulin DETEMIR 100 UNIT/ML X5UNITS SQ SCH (09:00)
[2019-06-20] MEDS: Nystatin SUSP 5 ML UD.LIQ BC SCH (10:09)
[2019-06-20] MEDS: methylPREDNISolone 125 MG/2 ML VIAL IVP SCH (10:10)
[2019-06-20] MEDS: Furosemide 40 MG/4 ML VIAL IVP SCH (10:10)
[2019-06-20] MEDS: Insulin LISPRO 300 UNITS/3 ML VIAL SQ SCH (10:29)
[2019-06-20] MEDS: Aspirin Enteric Coated 81 MG Tablet PO SCH (11:26)
[2019-06-20] MEDS: Loratadine 10 MG TABLET PO SCH (11:26)
[2019-06-20] MEDS: Fluconazole 100 MG TABLET PO SCH (11:26)
[2019-06-20] MEDS: Cyanocobalamin (B-12) 1,000 MCG TABLET PO SCH (11:26)
[2019-06-20] MEDS: Metoprolol XL (24 HR) Succ 50 MG TAB.ER.24H PO SCH (11:26)
[2019-06-20] MEDS: Lactulose Oral Soln 20 GM/30 ML UDC PO SCH (11:26)
[2019-06-20] MEDS: Docusate Oral Soln 100 MG/10 ML UDC PO SCH (11:26)
[2019-06-20] MEDS ORDERED: *HR* FentaNYL (PF) 100 MCG/2 ML VIAL IVP PRN (11:59)
[2019-06-20] MEDS ORDERED: Atropine Sulfate 1% 40 DROP/2 ML BOTTLE SL ONE (12:00)
[2019-06-20] MEDS ORDERED: *HR* LORazepam 2 MG/ML VIAL IVP PRN (12:01)
[2019-06-20] MEDS ORDERED: Haloperidol Lactate 5 MG/ML VIAL IVP PRN (12:02)
[2019-06-20] MEDS ORDERED: Ipratropium/Albuterol Neb 3 ML IH PRN (12:13)
[2019-06-20] MEDS: *HR* LORazepam Oral Conc 2 MG/ML SL SCH ×3 (12:48→21:21)
[2019-06-20] MEDS ORDERED: Atropine Sulfate 1% 40 DROP/2 ML BOTTLE SL PRN (13:00)
[2019-06-21] MEDS: *HR* LORazepam Oral Conc 2 MG/ML SL SCH ×4 (03:54→11:53)
[2019-06-21] MEDS ORDERED: Haloperidol Lactate 5 MG/ML VIAL IVP PRN (10:23)
[2019-06-21] MEDS ORDERED: Haloperidol Oral Conc 10 MG/5 ML UDC PO SCH (10:30)
[2019-06-21 12:23] VITALS: BP 118/57
== END 2019-06-21 12:47 | disposition hospice, inpatient (51) | DRG 377 ==
LOC: EMEROOARM 10:22 → 2NENU 10:22 → SUATTDRO 14:11 → 2NNU 06-01 21:44 → 2NENU 06-03 21:22
PROVIDERS: ADMIT Internal Medicine; ATTEND Internal Medicine

== ENCOUNTER 2019-06-21 10:27 | Inpatient (IN) ==
[2019-06-21] MEDS ORDERED: Bisacodyl 10 MG RECTAL SUPPOSITORY RC PRN (11:22)
[2019-06-21] MEDS ORDERED: Ipratropium/Albuterol Neb 3 ML IH PRN (11:27)
[2019-06-21] MEDS ORDERED: Atropine Sulfate 1% 40 DROP/2 ML BOTTLE SL PRN (11:27)
[2019-06-21] MEDS ORDERED: *HR* LORazepam 2 MG/ML VIAL IVP PRN ×2 (11:29→11:36)
[2019-06-21] MEDS ORDERED: Haloperidol Lactate 5 MG/ML VIAL IVP PRN (11:31)
[2019-06-21] MEDS ORDERED: *HR* FentaNYL (PF) 100 MCG/2 ML VIAL IVP PRN (11:32)
[2019-06-21] MEDS ORDERED: *HR* LORazepam Oral Conc 2 MG/ML SL SCH ×2 (13:00→16:00)
[2019-06-21] MEDS ORDERED: Haloperidol Oral Conc 10 MG/5 ML UDC PO SCH (16:00)
== END 2019-06-21 19:44 | disposition expired | DRG 951 ==
LOC: 2NENU 14:26 → 2ANU 17:55
PROVIDERS: ADMIT Internal Medicine Hospice and Palliative Medicine; ATTEND Internal Medicine Hospice and Palliative Medicine